=== PATIENT | male | born 1980 | race Caucasian/White ===

== ENCOUNTER 2017-07-12 10:21 | Inpatient (IN) | payer MEDICARE, MEDICAID ==
[~2017-07-12] VITALS: Ht 170.2 cm; Wt 85.7 kg
[~2017-07-12 10:21] MED LIST: AC325T; AGM875T PO; ASP81CT PO; ATN25T PO; ATN50T; CYAN5000 SL; FENO145T2 PO; FOLI-88 PO; FRSM20T PO; IBUP-30 PO; NAPR220T76 PO; OMEG-11 PO; SIMV40TA4 PO; VIT1TABL82 PO
--- OUTSIDE RECORDS SUMMARY | 2017-07-12 10:39 | XMS REPORT ---
Author Author KEVIN PETERSEN [facility] Address [address] [place] [address] Care Team Providers Care Day Care Home Mother Name Role Phone KEVIN PETERSEN Unavailable PROBLEMS Type Condition ICD9-CM Code [id number] Code Onset Dates Condition Status SNOMED Code Problem Irritable bowel syndrome with both constipation and diarrhea K58.2 Active 07310445 Problem Hyperlipidemia E78.5 Active 66466828 Problem Congenital heart disease Q24.9 Active [id number] ALLERGIES No Information SOCIAL HISTORY Never Assessed PLAN OF CARE VITAL SIGNS MEDICATIONS Medication Instructions Dosage Frequency Start Date End Date Duration Status Atenolol 25 MG Orally 3 times a day 1 tablet 8h 30 days Active RESULTS No Results PROCEDURES No Known procedures IMMUNIZATIONS No Known Immunizations MEDICAL (GENERAL) HISTORY Type Description Date Medical History Hyperlipidemia Medical History HTN Medical History congenital heart defect Medical History heatr murmur Medical History arthritis Medical History back trouble Medical History heart disease Surgical History Scope to look at heart 2013
--- OUTSIDE RECORDS SUMMARY | 2017-07-12 10:39 | XMS REPORT ---
Author Author KEVIN PETERSEN [facility] Address [address] [place] [address] Care Team Providers Care Repairing Calibrator Name Role Phone KEVIN PETERSEN Unavailable PROBLEMS Type Condition ICD9-CM Code [id number] Code Onset Dates Condition Status SNOMED Code Problem Irritable bowel syndrome with both constipation and diarrhea K58.2 Active 06761770 Problem Hyperlipidemia E78.5 Active 26045401 Problem Congenital heart disease Q24.9 Active 08318628 ALLERGIES Substance Reaction Event Type Date Status Codeine Sulfate elevated blood pressure Drug Allergy Oct, Active SOCIAL HISTORY Never Assessed PLAN OF CARE Activity Details Follow Up 1 Year Reason: VITAL SIGNS Height 67 in 2016-11-15 Weight 194.6 lbs 2016-11-15 Temperature 98.2 degrees Fahrenheit 2016-11-15 Heart Rate 76 bpm 2016-11-15 Respiratory Rate 24 2016-11-15 BMI 30.48 kg/m2 2016-11-15 Blood pressure systolic 122 mmHg 2016-11-15 Blood pressure diastolic 82 mmHg 2016-11-15 MEDICATIONS Medication Instructions Dosage Frequency Start Date End Date Duration Status Aspirin 81 mg 1 tablet by Oral route 1 time per day Apr, Active Atenolol 25 MG Orally 3 times a day 1 tablet 8h 90 days Active B Complex-Vitamin B12 1 Tablet by Oral route 1 time per day Jun, Active Fish Oil 1,000 mg 1 Capsule by Oral route 1 time per day Jun, Active Multivitamin 1 tablet by Oral route 1 time per day May, Active Ibuprofen 200 mg take 2 tablets (400 mg) by oral route every 4 hours as needed with food Jul, Active Feosol 325 mg (65 mg iron) 1 tablet daily Jul, 90 days Active RESULTS No Results PROCEDURES Procedure Date Ordered Result Body Site [facility] VISIT ESTABLISHED PATIENT November 15, 2016 IMMUNIZATIONS No Known Immunizations MEDICAL (GENERAL) HISTORY Type Description Date Medical History Hyperlipidemia Medical History HTN Medical History congenital heart defect Medical History heatr murmur Medical History arthritis Medical History back trouble Medical History heart disease Surgical History Scope to look at heart 2014
--- OUTSIDE RECORDS SUMMARY | 2017-07-12 10:40 | XMS REPORT | Continuity of Care Document ---
Author Author [facility] Organization [facility] Address Unknown Phone Unavailable Allergies Active Description Code Type Severity Reaction Onset Reported/Identified Relationship to Patient Clinical Status Yes codeine Drug Allergy 11/25/2008 Yes codeine Drug Allergy N/A N/A 11/25/2008 Yes codeine [id number] Drug Allergy Severe RAISES HEART RA 06/18/2014 Medications Problems Date Dx Coded Attending Type Code Diagnosis Diagnosed By 04/30/2008 272.1 HYPERLIPOPROTEINEMIA TYPE IV 04/30/2008 272.1 HYPERLIPOPROTEINEMIA TYPE IV 04/30/2008 272.1 HYPERLIPOPROTEINEMIA TYPE IV 04/30/2008 AMANDA CORONEL DDS 272.1 HYPERLIPOPROTEINEMIA TYPE IV 04/30/2008 AMANDA CORONEL DDS 272.1 HYPERLIPOPROTEINEMIA TYPE IV 04/30/2008 272.1 HYPERLIPOPROTEINEMIA TYPE IV 04/30/2008 SHORTY DE LA O DDS 272.1 HYPERLIPOPROTEINEMIA TYPE IV 04/30/2008 PRANAV BORJAS DO 272.1 HYPERLIPOPROTEINEMIA TYPE IV 04/30/2008 PRANAV BORJAS DO 272.1 HYPERLIPOPROTEINEMIA TYPE IV 04/30/2008 PRANAV BORJAS DO 272.1 HYPERLIPOPROTEINEMIA TYPE IV 04/30/2008 PRANAV BORJAS DO 272.1 HYPERLIPOPROTEINEMIA TYPE IV 04/30/2008 DAPHNEY MELISSA MD 272.1 HYPERLIPOPROTEINEMIA TYPE IV 04/30/2008 PRANAV BORJAS DO 272.1 HYPERLIPOPROTEINEMIA TYPE IV 04/30/2008 SHORTY DE LA O DDS 272.1 HYPERLIPOPROTEINEMIA TYPE IV 07/30/2008 270.7 HYPERGLYCEMIA 07/30/2008 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 07/30/2008 270.7 HYPERGLYCEMIA 07/30/2008 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 07/30/2008 270.7 HYPERGLYCEMIA 07/30/2008 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 07/30/2008 HOMER DDS, AMANDA F 270.7 HYPERGLYCEMIA 07/30/2008 HOMER DDS, AMANDA F 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 07/30/2008 HOMER DDS, AMANDA F 270.7 HYPERGLYCEMIA 07/30/2008 HOMER DDS, AMANDA F 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 07/30/2008 270.7 HYPERGLYCEMIA 07/30/2008 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 07/30/2008 JAIRON DDS, SHORTY M 270.7 HYPERGLYCEMIA 07/30/2008 JAIRON DDS, SHORTY M 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 07/30/2008 BORJAS DO, PRANAV K 270.7 HYPERGLYCEMIA 07/30/2008 BORJAS DO, PRANAV K 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 07/30/2008 BORJAS DO, PRANAV K 270.7 HYPERGLYCEMIA 07/30/2008 BORJAS DO, PRANAV K 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 07/30/2008 BORJAS DO, PRANAV K 270.7 HYPERGLYCEMIA 07/30/2008 BORJAS DO, PRANAV K 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 07/30/2008 BORJAS DO, PRANAV K 270.7 HYPERGLYCEMIA 07/30/2008 BORJAS DO, PRANAV K 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 07/30/2008 SHIN HANEY, ALI 270.7 HYPERGLYCEMIA 07/30/2008 SHIN HANEY, ALI 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 07/30/2008 BORJAS DO, PRANAV K 270.7 HYPERGLYCEMIA 07/30/2008 BORJAS DO, PRANAV K 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 07/30/2008 JAIRON DDS, SHORTY M 270.7 HYPERGLYCEMIA 07/30/2008 JAIRON DDS, SHORTY M 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 05/28/2010 784.0 headache 05/28/2010 784.0 headache 05/28/2010 784.0 headache 05/28/2010 HOMER DDS, AMANDA F 784.0 headache 05/28/2010 HOMER DDS, AMANDA F 784.0 headache 05/28/2010 784.0 headache 05/28/2010 JAIRON DDS, SHORTY M 784.0 headache 05/28/2010 BORJAS DO, PRANAV K 784.0 headache 05/28/2010 BORJAS DO, PRANAV K 784.0 headache 05/28/2010 BORJAS DO, PRANAV K 784.0 headache 05/28/2010 BORJAS DO, PRANAV K 784.0 headache 05/28/2010 SHIN HANEY, ALI 784.0 headache 05/28/2010 BORJAS DO, PRANAV K 784.0 headache 05/28/2010 JAIRON DDS, SHORTY Julien 784.0 headache 07/13/2010 759.89 SEUN'S SYNDROME 07/13/2010 759.89 SEUN'S SYNDROME 07/13/2010 759.89 SEUN'S SYNDROME 07/13/2010 HOMER DDS, AMANDA F 759.89 SEUN'S SYNDROME 07/13/2010 HOMER DDS, AMANDA F 759.89 SEUN'S SYNDROME 07/13/2010 759.89 SEUN'S SYNDROME 07/13/2010 JAIRON DDS, SHORTY Julien 759.89 SEUN'S SYNDROME 07/13/2010 BORJAS DO, PRANAV K 759.89 SEUN'S SYNDROME 07/13/2010 BORJAS DO PRANAV K 759.89 SEUN'S SYNDROME 07/13/2010 BORJAS DO, PRANAV K 759.89 SEUN'S SYNDROME 07/13/2010 BORJAS DO, PRANAV K 759.89 SEUN'S SYNDROME 07/13/2010 SHIN HANEY, ALI 759.89 SEUN'S SYNDROME 07/13/2010 BORJAS DO, PRANAV K 759.89 SEUN'S SYNDROME 07/13/2010 JAIRON DDS, SHORTY Julien 759.89 SEUN'S SYNDROME 04/22/2011 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 04/22/2011 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 04/22/2011 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 04/22/2011 HOMER DDS, AMANDA F 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 04/22/2011 HOMER DDS, AMANDA F 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 04/22/2011 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 04/22/2011 JAIRON DDS, SHORTY Julien 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 04/22/2011 BORJAS DO PRANAV K 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 04/22/2011 BORJAS DO, PRANAV K 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 04/22/2011 BORJAS DO, PRANAV K 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 04/22/2011 BORJAS DO, PRANAV K 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 04/22/2011 SHIN HANEY, DAPHNEY 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 04/22/2011 BORJAS DO, PRANAV K 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 04/22/2011 JAIRON DDS, SHORTY Julien 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 05/20/2011 414.01 CORONARY ARTERY STENOSIS MULTI-VESSEL 05/20/2011 414.01 CORONARY ARTERY STENOSIS MULTI-VESSEL 05/20/2011 414.01 CORONARY ARTERY STENOSIS MULTI-VESSEL 05/20/2011 HOMER CHARLAS, AMANDA F 414.01 CORONARY ARTERY STENOSIS MULTI-VESSEL 05/20/2011 HOMER DDS, AMANDA F 414.01 CORONARY ARTERY STENOSIS MULTI-VESSEL 05/20/2011 414.01 CORONARY ARTERY STENOSIS MULTI-VESSEL 05/20/2011 JAIRON DDS, SHORTY M 414.01 CORONARY ARTERY STENOSIS MULTI-VESSEL 05/20/2011 BORJAS DO, PRANAV K 414.01 CORONARY ARTERY STENOSIS MULTI-VESSEL 05/20/2011 BORJAS DO, PRANAV K 414.01 CORONARY ARTERY STENOSIS MULTI-VESSEL 05/20/2011 BORJAS DO, PRANAV K 414.01 CORONARY ARTERY STENOSIS MULTI-VESSEL 05/20/2011 BORJAS DO, PRANAV K 414.01 CORONARY ARTERY STENOSIS MULTI-VESSEL 05/20/2011 SHIN HANEY, DAPHNEY 414.01 CORONARY ARTERY STENOSIS MULTI-VESSEL 05/20/2011 BORJAS DO, PRANAV K 414.01 CORONARY ARTERY STENOSIS MULTI-VESSEL 05/20/2011 JAIRON DDS, SHORTY M 414.01 CORONARY ARTERY STENOSIS MULTI-VESSEL 08/11/2011 272.4 HYPERLIPIDEMIA 08/11/2011 V04.81 Vaccines Prophylactic Need Against Influenza 08/11/2011 272.4 HYPERLIPIDEMIA 08/11/2011 V04.81 Vaccines Prophylactic Need Against Influenza 08/11/2011 272.4 HYPERLIPIDEMIA 08/11/2011 V04.81 Vaccines Prophylactic Need Against Influenza 08/11/2011 HOMER DDS, AMANDA F 272.4 HYPERLIPIDEMIA 08/11/2011 HOMER DDS, AMANDA F V04.81 Vaccines Prophylactic Need Against Influenza 08/11/2011 HOMER DDS, AMANDA F 272.4 HYPERLIPIDEMIA 08/11/2011 HOMER DDS, AMANDA F V04.81 Vaccines Prophylactic Need Against Influenza 08/11/2011 272.4 HYPERLIPIDEMIA 08/11/2011 V04.81 Vaccines Prophylactic Need Against Influenza 08/11/2011 JAIRON DDS, SHORTY M 272.4 HYPERLIPIDEMIA 08/11/2011 JAIRON DDS, SHORTY M V04.81 Vaccines Prophylactic Need Against Influenza 08/11/2011 BORJAS DO, PRANAV K 272.4 HYPERLIPIDEMIA 08/11/2011 BORJAS DO, PRANAV K V04.81 Vaccines Prophylactic Need Against Influenza 08/11/2011 BORJAS DO, PRANAV K 272.4 HYPERLIPIDEMIA 08/11/2011 BORJAS DO, PRANAV K V04.81 Vaccines Prophylactic Need Against Influenza 08/11/2011 BORJAS DO, PRANAV K 272.4 HYPERLIPIDEMIA 08/11/2011 BORJAS DO, PRANAV K V04.81 Vaccines Prophylactic Need Against Influenza 08/11/2011 BORJAS DO, PRANAV K 272.4 HYPERLIPIDEMIA 08/11/2011 BORJAS DO, PRANAV K V04.81 Vaccines Prophylactic Need Against Influenza 08/11/2011 DAPHNEY MELISSA MD 272.4 HYPERLIPIDEMIA 08/11/2011 SHIN HANEY, ALI V04.81 Vaccines Prophylactic Need Against Influenza 08/11/2011 BORJAS DO, PRANAV K 272.4 HYPERLIPIDEMIA 08/11/2011 BORJAS DO, PRANAV K V04.81 Vaccines Prophylactic Need Against Influenza 08/11/2011 JAIRON DDS, SHORTY M 272.4 HYPERLIPIDEMIA 08/11/2011 JAIRON DDS, SHORTY M V04.81 Vaccines Prophylactic Need Against Influenza 12/23/2011 V06.1 TDAP DX 12/23/2011 V58.69 MEDICATION HIGH RISK 12/23/2011 V06.1 TDAP DX 12/23/2011 V58.69 MEDICATION HIGH RISK 12/23/2011 V06.1 TDAP DX 12/23/2011 V58.69 MEDICATION HIGH RISK 12/23/2011 HOMER DDS, AMANDA F V06.1 TDAP DX 12/23/2011 HOMER DDS, AMANDA F V58.69 MEDICATION HIGH RISK 12/23/2011 HOMER DDS, AMANDA F V06.1 TDAP DX 12/23/2011 HOMER DDS, AMANDA F V58.69 MEDICATION HIGH RISK 12/23/2011 V06.1 TDAP DX 12/23/2011 V58.69 MEDICATION HIGH RISK 12/23/2011 JAIRON DDS, SHORTY M V06.1 TDAP DX 12/23/2011 JAIRON DDS, SHORTY Julien V58.69 MEDICATION HIGH RISK 12/23/2011 BORJAS DO, PRANAV K V06.1 TDAP DX 12/23/2011 BORJAS DO, PRANAV K V58.69 MEDICATION HIGH RISK 12/23/2011 BORJAS DO, PRANAV K V06.1 TDAP DX 12/23/2011 BORJAS DO, PRANAV K V58.69 MEDICATION HIGH RISK 12/23/2011 BORJAS DO, PRANAV K V06.1 TDAP DX 12/23/2011 BORJAS DO, PRANAV K V58.69 MEDICATION HIGH RISK 12/23/2011 BORJAS DO, PRANAV K V06.1 TDAP DX 12/23/2011 BORJAS DO, PRANAV K V58.69 MEDICATION HIGH RISK 12/23/2011 SHIN HANEY, ALI V06.1 TDAP DX 12/23/2011 DAPHNEY MELISSA MD V58.69 MEDICATION HIGH RISK 12/23/2011 BORJAS DO, PRANAV K V06.1 TDAP DX 12/23/2011 BORJAS DO, PRANAV K V58.69 MEDICATION HIGH RISK 12/23/2011 JAIRON DDS, SHORTY Julien V06.1 TDAP DX 12/23/2011 JAIRON DDS, SHORTY Julien V58.69 MEDICATION HIGH RISK 07/10/2012 787.20 DYSPHAGIA UNSPECIFIED 07/10/2012 787.20 DYSPHAGIA UNSPECIFIED 07/10/2012 787.20 DYSPHAGIA UNSPECIFIED 07/10/2012 HOMER DDS, AMANDA F 787.20 DYSPHAGIA UNSPECIFIED 07/10/2012 HOMER DDS, AMANDA F 787.20 DYSPHAGIA UNSPECIFIED 07/10/2012 787.20 DYSPHAGIA UNSPECIFIED 07/10/2012 JAIRON DDS, SHORTY M 787.20 DYSPHAGIA UNSPECIFIED 07/10/2012 BORJAS DO PRANAV K 787.20 DYSPHAGIA UNSPECIFIED 07/10/2012 BORJAS DO, PRANAV K 787.20 DYSPHAGIA UNSPECIFIED 07/10/2012 BORJAS DO, PRANAV K 787.20 DYSPHAGIA UNSPECIFIED 07/10/2012 PRANAV BORJAS DO K 787.20 DYSPHAGIA UNSPECIFIED 07/10/2012 SHIN HANEY, DAPHNEY 787.20 DYSPHAGIA UNSPECIFIED 07/10/2012 PRANAV BORJAS DO K 787.20 DYSPHAGIA UNSPECIFIED 07/10/2012 JAIRON LEUNG, SHORTY Julien 787.20 DYSPHAGIA UNSPECIFIED 08/03/2012 112.0 THRUSH (ORAL) 08/03/2012 112.0 THRUSH (ORAL) 08/03/2012 HOMER DDS, AMANDA F 112.0 THRUSH (ORAL) 08/03/2012 HOMER DDS, AMANDA F 112.0 THRUSH (ORAL) 08/03/2012 112.0 THRUSH (ORAL) 08/03/2012 JAIRON LEUNG, SHORTY Julien 112.0 THRUSH (ORAL) 08/03/2012 SUAD NICHOLSON, PRANAV K 112.0 THRUSH (ORAL) 08/03/2012 SUAD NICHOLSON, PRANAV K 112.0 THRUSH (ORAL) 08/03/2012 SUAD NICHOLSON PRANAV K 112.0 THRUSH (ORAL) 08/03/2012 SUAD NICHOLSON PRANAV K 112.0 THRUSH (ORAL) 08/03/2012 DAPHNEY MELISSA MD 112.0 THRUSH (ORAL) 08/03/2012 SUAD NICHOLSON PRANAV K 112.0 THRUSH (ORAL) 08/03/2012 JAIRON LEUNG, SHORTY Julien 112.0 THRUSH (ORAL) 05/01/2014 HORTENCIA BORJAS DOA K 785.1 PALPITATIONS 05/01/2014 DAPHNEY MELISSA MD 785.1 PALPITATIONS 05/01/2014 PRANAV BORJAS DO K 785.1 PALPITATIONS 05/01/2014 JAIRON LEUNG, SHORTY Julien 785.1 PALPITATIONS 06/12/2014 SHIN HANEY, ALI 745.4 VENTRICULAR SEPTAL DEFECT 06/12/2014 PRANAV BORJAS DO K 745.4 VENTRICULAR SEPTAL DEFECT 06/12/2014 JAIRON LEUNG, SHORTY Julien 745.4 VENTRICULAR SEPTAL DEFECT 07/03/2014 DAPHNEY MELISSA MD 427.0 SVT (SUPRAVENTRICULAR TACHYCARDIA) 07/03/2014 PRANAV BORJAS DO K 427.0 SVT (SUPRAVENTRICULAR TACHYCARDIA) 07/03/2014 SHORTY DE LA O DDS 427.0 SVT (SUPRAVENTRICULAR TACHYCARDIA) 07/23/2014 PRANAV BORJAS DO 112.0 CANDIDIASIS OF MOUTH 07/23/2014 PRANAV BORJAS DO 462 ACUTE PHARYNGITIS 07/23/2014 SHORTY DE LA O DDS 112.0 CANDIDIASIS OF MOUTH 07/23/2014 SHORTY DE LA O DDS 462 ACUTE PHARYNGITIS 02/11/2015 Ot 746.89 02/11/2015 Ot 747.3 Procedures Code Description Performed By [place] [id number] ROUTINE VENIPUNCTURE 09/15/2012 04094 CMP 09/15/2012 75823 LIPID PANEL 09/15 [id number] GFR CALC (RESULT ONLY) 09/15/2012 11494 CPK 09/16/2012 57903 ROUTINE VENIPUNCTURE 12/20/2012 81416 LIVER PANEL (LFT) 12/20/2012 36607 LIPID PANEL 12/20 71628 ROUTINE VENIPUNCTURE 08/01/2013 5811545 GFR CALC (RESULT ONLY) 08/01/2013 78492 CMP 08/01/2013 95869 LIPID PANEL 08/01 42287 ROUTINE VENIPUNCTURE 02/27/2014 5833863 GFR CALC (RESULT ONLY) 02/27/2014 54390 CMP 02/27/2014 71355 LIPID PANEL 02/27 11777 CBC 02/27/2014 58726 TSH 02/27/2014 44808 ECHO 2D 2013 12258 OXIMETRY 2013 88402 HOLTER MONITOR (OUTPATIENT) 07/03/2014 88953 OXIMETRY 2013 93140 ROUTINE VENIPUNCTURE 07/23/2014 1421099 GFR CALC (RESULT ONLY) 07/23/2014 59788 CMP 07/23/2014 92889 LIPID PANEL 07/23 92740 OXIMETRY 2014 Results Encounters ACCT No. Visit Date/Time Discharge Status Pt. Type Provider Facility Loc./Unit Complaint [id number] 06/18/2014 10:08:00 2013 17:30:00 DIS Outpatient [id number] 05/10/2014 13:04:00 2013 23:59:59 CLS Outpatient [id number] 04/23/2011 09:18:00 Document Registration [id number] 09/25/2014 08:25:00 09/25/2014 23: 59:59 CLS Outpatient JAIRON CHARLASHORTY Calles [id number] 07/23/2014 10:12:00 07/23/2014 23: 59:59 CLS Outpatient PRANAV BORJAS DO [id number] 07/03/2014 10:33:00 07/03/2014 23: 59:59 CLS Outpatient DAPHNEY MELISSA MD [id number] 05/01/2014 08:44:00 05/01/2014 23: 59:59 CLS Outpatient PRANAV BORJAS DO Jim [id number] 02/27/2014 09:51:00 02/27/2014 23: 59:59 CLS Outpatient SUAD NICHOLSON PRANAV Fernandez [id number] 08/01/2013 09:26:00 08/01/2013 23: 59:59 CLS Outpatient PRANAV BORJAS DO Jim [id number] 08/01/2013 09:26:00 08/01/2013 23: 59:59 CLS Outpatient HORTENCIA BORJAS DOLucas Fernandez [id number] 06/28/2013 08:54:00 06/28/2013 23: 59:59 CLS Outpatient JAIRON DUNHAMSHORTY Calles [id number] 10/17/2012 11:41:00 10/17/2012 23: 59:59 CLS Outpatient HOMER MADHU AMANDA F [id number] 09/18/2012 07:51:00 09/18/2012 23: 59:59 CLS Outpatient HOMER DDAMANDA Calles [id number] 08/11/2012 09:29:00 08/11/2012 23: 59:59 CLS Outpatient [id number] 08/03/2012 08:55:00 08/03/2012 23: 59:59 CLS Outpatient [id number] 07/10/2012 16:02:00 07/10/2012 23: 59:59 CLS Outpatient [id number] 12/20/2012 11:37:00 Document Registration
--- NOTE | 2017-07-12 11:26 | ED Abdominal Pain ---
General Chief Complaint: -Male Stated Complaint: ABD PAIN,POSSIBLE UTI Nursing Triage Note: AMB TO ROOM C/O ABD PAIN SINCE SUN. WAS SEEN IN [place] ER DX WITH UTI AND ILEUS. WAS BUT ON BACTRIM AND TOLD TO STAY ON CLEAR LIQUID STATES HE IS NOT ANY BETTR. Sepsis Screen: No Definite Risk Source of Information: Patient Exam Limitations: No Limitations History of Present Illness Time Seen By Provider: 11:24 Initial Comments Admit to ER with periumbilical abdominal for a few weeks that became worse on Tuesday (today is Tuesday) prompting a visit to the [facility] emergency room. He was seen at [facility] emergency room and diagnosed with urinary tract infection and ileus via x-ray and lab work. He was given Bactrim. He had some vomiting last night. Denies any improvement. Maximum temperature 101. 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 Primary care is Dr. Damon Timing/Duration: 2-3 Days Severity/Quality: Moderate Location: Periumbilical Radiation: No Radiation Activities at Onset: None Associated Symptoms: Denies Symptoms Allergies and Home Medications Allergies Coded Allergies: codeine (Verified Allergy, Severe, RAISES HEART RATE, 06/18/14) Home Medications Aspirin 81 Mg Chew, 81 MG PO DAILY, (Reported) Atenolol 25 Mg Tablet, 75 MG PO DAILY, (Reported) TAKES 3 (25MG) TABLETS Review of Systems Constitutional: see HPI EENTM: No Symptoms Reported Respiratory: No Symptoms Reported Cardiovascular: No Symptoms Reported Gastrointestinal: See HPI, Abdominal Pain, Denies Constipated, Denies Diarrhea , Nausea Genitourinary: No Symptoms Reported Musculoskeletal: no symptoms reported Skin: no symptoms reported Psychiatric/Neurological: No Symptoms Reported Endocrine: No Symptoms Reported Past Byfybdu-Slisoe-Rzggoe Hx Patient Social History Alcohol Use: Denies Use Recreational Drug Use: No Smoking Status: Never a Smoker Recent Foreign Travel: No Contact w/Someone Who Travel: No Recent Infectious Disease Expo: No Recent Hopitalizations: Yes Immunizations Up To Date Date of Pneumonia Vaccine: Jul 03, 2007 Date of Influenza Vaccine: May 29, 2012 Surgeries History of Surgeries: No Respiratory History of Respiratory Disorde: No Cardiovascular History of Cardiac Disorders: Yes (CONGENITAL CARDIOMYOPATHY) Reproductive System Hx Reproductive Disorders: No Gastrointestinal History of Gastrointestinal Di: No Musculoskeletal History of Musculoskeletal Dis: Yes (C/O BACK PAIN ON LEFT SIDE) Endocrine History of Endocrine Disorders: No Psychosocial History of Psychiatric Problem: Yes (SEES PSYCH.AT [facility]) Blood Transfusions History of Blood Disorders: No Physical Exam Vital Signs VS - Last 72 Hours, by Label 07/12/17 10:52 Temp 98.7 Pulse 76 Resp 18 B/P (MAP) 113/64 Pulse Ox 96 O2 Delivery Room Air Capillary Refill : Less Than 3 Seconds General Appearance: WD/WN, no apparent distress HEENT: PERRL/EOMI, normal ENT inspection Neck: non-tender, full range of motion Respiratory: normal breath sounds, no respiratory distress, no accessory muscle use Cardiovascular: regular rate, rhythm, no murmur Gastrointestinal: normal bowel sounds, soft, tenderness (primary medical tenderness to palpation. Bowel sounds are active. He does report passing gas) Extremities: normal range of motion, non-tender Neurologic/Psychiatric: alert, normal mood/affect, oriented x 3 Skin: normal color, warm/dry Progress/Results/Core Measures Results/Orders Lab Results Laboratory Tests Test 07/12/17 11:10 Range/Units White Blood Count 12.0 H 4.3-11.0 10^3/uL Red Blood Count 4.68 4.35-5.85 10^6/uL Hemoglobin 13.4 13.3-17.7 G/DL Hematocrit 38 L 40-54 % Mean Corpuscular Volume 82 80-99 FL Mean Corpuscular Hemoglobin 29 25-34 PG Mean Corpuscular Hemoglobin Concent 35 32-36 G/DL Red Cell Distribution Width 12.4 10.0-14.5 % Platelet Count 272 130-400 10^3/uL Mean Platelet Volume 10.4 7.4-10.4 FL Neutrophils (%) (Auto) 82 H 42-75 % Lymphocytes (%) (Auto) 5 L 12-44 % Monocytes (%) (Auto) 12 0-12 % Eosinophils (%) (Auto) 0 0-10 % Basophils (%) (Auto) 0 0-10 % Neutrophils # (Auto) 9.8 H 1.8-7.8 X 10^3 Lymphocytes # (Auto) 0.6 L 1.0-4.0 X 10^3 Monocytes # (Auto) 1.5 H 0.0-1.0 X 10^3 Eosinophils # (Auto) 0.1 0.0-0.3 10^3/uL Basophils # (Auto) 0.0 0.0-0.1 10^3/uL Neutrophils % (Manual) 73 % Lymphocytes % (Manual) 10 % Monocytes % (Manual) 10 % Eosinophils % (Manual) 0 % Basophils % (Manual) 0 % Band Neutrophils 7 % Rouleau SLIGHT Urine Color CANDELARIA H Urine Clarity CLEAR Urine pH 6 5-9 Urine Specific [place] 1.020 1.016-1.022 Urine Protein 2+ H NEGATIVE Urine Glucose (UA) NEGATIVE NEGATIVE Urine Ketones 1+ H NEGATIVE Urine Nitrite NEGATIVE NEGATIVE Urine Bilirubin 2+ H NEGATIVE Urine Urobilinogen 12 H NORMAL MG/DL Urine Leukocyte Esterase 1+ H NEGATIVE Urine RBC (Auto) 1+ H NEGATIVE Urine RBC RARE /HPF Urine WBC 5-10 H /HPF Urine Squamous Epithelial Cells 0-2 /HPF Urine Renal Epithelial Cells NONE /HPF Urine Crystals NONE /LPF Urine Bacteria TRACE /HPF Urine Casts NONE /LPF Urine Mucus LARGE H /LPF Urine Culture Indicated YES Sodium Level 137 135-145 MMOL/L Potassium Level 3.3 L 3.6-5.0 MMOL/L Chloride Level 104 98-107 MMOL/L Carbon Dioxide Level 26 21-32 MMOL/L Anion Gap 7 5-14 MMOL/L Blood Urea Nitrogen 8 7-18 MG/DL Creatinine 0.70 0.60-1.30 MG/DL Estimat Glomerular Filtration Rate > 60 BUN/Creatinine Ratio 11 Glucose Level 105 70-105 MG/DL Calcium Level 8.8 8.5-10.1 MG/DL Total Bilirubin 0.8 0.1-1.0 MG/DL Aspartate Amino Transf (AST/SGOT) 15 5-34 U/L Alanine Aminotransferase (ALT/SGPT) 25 0-55 U/L Alkaline Phosphatase 125 40-136 U/L Total Protein 6.6 6.4-8.2 GM/DL Albumin 3.5 3.2-4.5 GM/DL My Orders Orders - SERGE OLIVA APRN Ua Culture If Indicated (07/12/17 10:57) Saline Lock/Iv-Start (07/12/17 10:57) Cbc With Automated Diff (07/12/17 10:57) Comprehensive Metabolic Panel (07/12/17 10:57) Ns Iv 1000 Ml (Sodium Chloride 0.9%) (07/12/17 11:30) Ct Abdomen/Pelvis W (07/12/17 11:18) Iohexol Injection (Omnipaque 350 Mg/Ml 1 (07/12/17 11:30) Ns (Ivpb) (Sodium Chloride 0.9% Ivpb Bag (07/12/17 11:30) Manual Differential (07/12/17 11:10) Piperacillin Sodium/Tazobactam (Zosyn Vi (07/12/17 12:15) Fentanyl Injection (Sublimaze Injection (07/12/17 12:15) Urine Culture (07/12/17 11:10) Medications Given in ED Current Medications Medications Dose Ordered Sig/Wero Route Start Time Stop Time Status Last Admin Dose Admin Fentanyl Citrate 50 mcg ONCE ONCE IVP 07/12/17 12:15 07/12/17 12:16 DC 07/12/17 12:33 50 MCG Iohexol 100 ml ONCE ONCE IV 07/12/17 11:30 07/12/17 11:31 DC 07/12/17 11:50 100 ML Sodium Chloride 100 ml ONCE ONCE IV 07/12/17 11:30 07/12/17 11:31 DC 07/12/17 11:50 80 ML Vital Signs/I&O Vital Sign - Last 12Hours 07/12/17 10:52 Temp 98.7 Pulse 76 Resp 18 B/P (MAP) 113/64 Pulse Ox 96 O2 Delivery Room Air Blood Pressure Mean: 80 Diagnostic Imaging Diagonstic Imaging: CT Comments NAME: JUNITO GREENBERG [facility] REC#: [id number] PT STATUS: REG ER : 1980 PHYSICIAN: SERGE OLIVA APRN ADMIT DATE: 07/12/17/ER Draft Date of Exam:07/12/17 CT ABDOMEN/PELVIS W PROCEDURE: CT abdomen and pelvis with contrast. TECHNIQUE: Multiple contiguous axial images were obtained through the abdomen and pelvis after administration of intravenous contrast. INDICATION: Abdominal pain. 100 mL of Omnipaque 350 is administered intravenously. FINDINGS: There is a fluid collection measuring 6 x 7 x 6.4 cm in the retrocecal area with suggestion of an inflamed appendix posterior to it suggestive of a an appendiceal abscess. There is no bowel obstruction. No significant free fluid or free air is seen. The lung bases appear clear. The liver, the gallbladder, the pancreas, and adrenal glands appear unremarkable. The prostate is moderately enlarged measuring 16.2 x 14 x 5.5 cm in size. The abdominal aorta is relatively small in caliber measuring 1.1 cm with normal patent lumen and normal appearance of its major branches. No para-aortic significantly enlarged lymph nodes are seen. The osseous structures demonstrate mild left convexity scoliosis and mild degenerative changes in the SI joints. The prostate is enlarged measuring 6.1 cm in size. IMPRESSION: 1. A 7 cm fluid collection in retrocecal location suggestive of an appendiceal abscess. 2. Moderate splenomegaly. The findings are discussed with Dr. Riley at time of dictation. Dictated on workstation # [id number] Dict: 07/12/17 1203 Trans: 07/12/17 1231 TS [id number] Interpreted by: JEFFREY ELIZABETH MD Electronically signed by: Departure Communication (Admissions) Time/Spoke to Admitting Phy: 12:[address] Riley is here seeing the patient. We will admit to him, consult Dr. Elizabeth from interventional radiology to drain the abscess, IV antibiotics and an appendectomy at a later date. Time/Spoke to Consulting Phy: 12:43 Communication/Consulting Dr. Glasgow agrees to consult Progress Notes 1243-Patient to go down for interventional radiology for drainage of the abscess in 30 minutes. Impression Impression: Primary Impression: Acute appendicitis with appendiceal abscess Disposition: 09 ADMITTED INPATIENT Condition: Stable Admissions Decision to Admit Reason: Admit from ER (General) Decision to Admit/Date: Jul 12, 2017 Time/Decision to Admit Time: 12:34 Departure-Patient Inst. Referrals: [facility] (PCP/Family) Primary Care Physician SERGE OLIVA APRN Jul 12, 2017 11:26
[2017-07-12] MEDS ORDERED: IOHEXOL 350 MG/ML 100 ML (OMNIPAQUE 350) VIAL IV ONE (11:30)
[2017-07-12] MEDS ORDERED: NS 100 ML (IVPB) BAG IV ONE (11:30)
[2017-07-12] MEDS ORDERED: NS IV 1000 ML 1,000 ML IV SCH (11:30)
[2017-07-12 11:44] LABS: BASOPHILS % (AUTO) 0 % (0-10); BILIRUBIN,URINE 2+ (NEGATIVE); EOSINOPHILS # (AUTO) 0.1 10^3/uL (0.0-0.3); EOSINOPHILS % (AUTO) 0 % (0-10); KETONES,URINE 1+ (NEGATIVE); LEUKOCYTE ESTERASE ,URINE 1+ (NEGATIVE); LYMPHOCYTES # (AUTO) 0.6 X 10^3 (1.0-4.0); LYMPHOCYTES % (AUTO) 5 % (12-44); MEAN CORPUSCULAR HEMOGLOBIN 29 PG (25-34); MEAN CORPUSCULAR HGB CONC 35 G/DL (32-36); MEAN CORPUSCULAR VOLUME 82 FL (80-99); MEAN PLATELET VOLUME 10.4 FL (7.4-10.4); MONOCYTES # (AUTO) 1.5 X 10^3 (0.0-1.0); MONOCYTES % (AUTO) 12 % (0-12); NEUTROPHILS # (AUTO) 9.8 X 10^3 (1.8-7.8); NEUTROPHILS % (AUTO) 82 % (42-75); NITRITE,URINE NEGATIVE (NEGATIVE); PH,URINE 6 (5-9); PLATELET COUNT 272 10^3/uL (130-400); PROTEIN,URINE 2+ (NEGATIVE); RED BLOOD COUNT 4.68 10^6/uL (4.35-5.85); RED CELL DISTRIBUTION WIDTH 12.4 % (10.0-14.5); UROBILINOGEN,URINE 12 MG/DL (NORMAL)
[2017-07-12 12:03] LABS: ALANINE AMINOTRANSFERASE 25 U/L (0-55); ALBUMIN 3.5 GM/DL (3.2-4.5); ANION GAP 7 MMOL/L (5-14); ASPARTATE AMINO TRANSFERASE 15 U/L (5-34); BILIRUBIN,TOTAL 0.8 MG/DL (0.1-1.0); BLOOD UREA NITROGEN 8 MG/DL (7-18); BUN/CREATININE RATIO 11; CALCIUM 8.8 MG/DL (8.5-10.1); CARBON DIOXIDE 26 MMOL/L (21-32); CHLORIDE 104 MMOL/L (98-107); GFR ESTIMATED > 60; GLUCOSE 105 MG/DL (70-105); POTASSIUM 3.3 MMOL/L (3.6-5.0); SODIUM 137 MMOL/L (135-145); TOTAL PROTEIN 6.6 GM/DL (6.4-8.2)
[2017-07-12 12:07] LABS: BAND NEUTROPHILS 7 %; NEUTROPHILS % (MANUAL) 73 %
[2017-07-12 12:08] LABS: BASOPHILS % (MANUAL) 0 %; EOSINOPHILS % (MANUAL) 0 %; LYMPHOCYTES % (MANUAL) 10 %; ROULEAUX SLIGHT
[2017-07-12] MEDS ORDERED: fentaNYL INJECTION 100 MCG/2 ML AMP IVP ONE ×2 (12:15→13:30)
[2017-07-12 12:16] LABS: SQUAMOUS EPITHELIAL CELL,UR 0-2 /HPF
--- NOTE | 2017-07-12 12:31 | Diagnostic Imaging Report ---
PROCEDURE: CT abdomen and pelvis with contrast. TECHNIQUE: Multiple contiguous axial images were obtained through the abdomen and pelvis after administration of intravenous contrast. INDICATION: Abdominal pain. 100 mL of Omnipaque 350 is administered intravenously. FINDINGS: There is a fluid collection measuring 6 x 7 x 6.4 cm in the retrocecal area with suggestion of an inflamed appendix posterior to it suggestive of a an appendiceal abscess. There is no bowel obstruction. No significant free fluid or free air is seen. The lung bases appear clear. The liver, the gallbladder, the pancreas, and adrenal glands appear unremarkable. The prostate is moderately enlarged measuring 16.2 x 14 x 5.5 cm in size. The abdominal aorta is relatively small in caliber measuring 1.1 cm with normal patent lumen and normal appearance of its major branches. No para-aortic significantly enlarged lymph nodes are seen. The osseous structures demonstrate mild left convexity scoliosis and mild degenerative changes in the SI joints. The prostate is enlarged measuring 6.1 cm in size. IMPRESSION: 1. A 7 cm fluid collection in retrocecal location suggestive of an appendiceal abscess. 2. Moderate splenomegaly. The findings are discussed with Dr. Riley at time of dictation. Dictated by: Dictated on workstation # [id number]
[2017-07-12] MEDS: PIPERACILLIN SODIUM/TAZOBACTAM 4.5 GM in NS (IVPB) 100 ML IV ONE ×2 (12:34→14:16)
[2017-07-12] MEDS ORDERED: LIDOCAINE 1% INJ 20 ML (XYLOCAINE) VIAL INJ ONE (13:30)
[2017-07-12] MEDS: fentaNYL INJECTION 100 MCG/2 ML AMP IVP PRN ×2 (13:54→14:08)
--- NOTE | 2017-07-12 14:20 | Pre-Procedure Progress Note ---
Pre-Procedure Progress Note H&P Reviewed The H&P was reviewed, patient examined and no changes noted. Date H&P Reviewed: Jul 12, 2017 Time H&P Reviewed: 13:00 Appendiceal abscess JEFFREY MEDINA MD Jul 12, 2017 14:19
[2017-07-12] MEDS ORDERED: NS W/KCL 40 MEQ/L 1,000 ML IV ONE (14:46)
[2017-07-12] MEDS ORDERED: SULF-222 PO (14:55)
[2017-07-12] MEDS ORDERED: ATEN25TA PO (14:56)
[2017-07-12] MEDS ORDERED: IBUP-30 PO (14:56)
[2017-07-12] MEDS ORDERED: MULT-35 PO (14:57)
[2017-07-12] MEDS ORDERED: CATHETER FLUSH 10 ML SYR IV PRN (15:00)
[2017-07-12] MEDS: NS W/KCL 40 MEQ/L 1,000 ML IV SCH (15:01)
[2017-07-12] MEDS: fentaNYL INJECTION 100 MCG/2 ML AMP IV PRN ×3 (15:26→22:12)
[2017-07-12] MEDS ORDERED: INFLUENZA TRIvalent 2017-2018 0.5 ML/45 MCG SYR IM ONE (15:30)
[2017-07-12 16:12] VITALS: BP 118/56
--- NOTE | 2017-07-12 16:21 | History & Physical-Surgical ---
History of Present Illness History of Present Illness Reason for visit/HPI Chief complaint periumbilical abdominal pain. Patient is a 36-year-old male who has been feeling well for approximately 3 weeks. Patient states that he's been having a little bit of periumbilical pain which has slowly increased in intensity. There is approximately about 3 days where he started to feel better but then was followed by worsening symptoms again. Patient was seen at outlying facility couple days ago which he was diagnosed with an ileus and UTI which is placed on Bactrim at that time. Patient states the pain continued to worsen and was instructed to come here for further evaluation today. Patient pain is periumbilical right lower quadrant area. He was having some nausea and emesis last night. The pain is dull sharp without any radiation. He has had fever up to 101. Patient with CT scan with a 7 cm retrocecal abscess suggestive of perforated appendicitis. Patient with no other complaints this time. He denies any sweats chills shortness of breath or chest pain. Date of Admission Jul 12, 2017 at 12:57 Date Seen by Provider: Jul 12, 2017 Time Seen by Provider: 12:57 I consulted on this patient on 07/12/17 12:57 Attending Physician Katty Riley DO Admitting Physician kathy,[facility] Allergies and Home Medications Allergies Coded Allergies: codeine (Verified Allergy, Severe, RAISES HEART RATE, 06/18/14) Home Medications Atenolol 25 Mg Tablet, 75 MG PO DAILY, (Reported) TAKES 3 (25MG) TABLETS Ibuprofen 200 Mg Tablet, 400 MG PO Q6H PRN for PAIN-MILD, (Reported) TAKES 2 (200MG) TABLETS Multivitamin 1 Each Tablet, 1 TAB PO DAILY, (Reported) Sulfamethoxazole/Trimethoprim 1 Each Tablet, 1 TAB PO BID for 14 Days, (Reported ) 14 DAY THERAPY FILLED 07-10-17 Past Cwpqeex-Ydvnki-Eyfock Hx Patient Social History Alcohol Use: Denies Use Recreational Drug Use: No Smoking Status: Never a Smoker Recent Foreign Travel: No Contact w/Someone Who Travel: No Recent Infectious Disease Expo: No Recent Hopitalizations: No Physical Abuse Screen: No Sexual Abuse: No Immunizations Up To Date PED Vaccines UTD: Yes Date of Pneumonia Vaccine: Jul 03, 2007 Date of Influenza Vaccine: May 29, 2012 Seasonal Allergies Seasonal Allergies: No Surgeries History of Surgeries: No Respiratory History of Respiratory Disorde: No Cardiovascular History of Cardiac Disorders: Yes (CONGENITAL CARDIOMYOPATHY) Neurological History of Neurological Disord: No Reproductive System Hx Reproductive Disorders: No Genitourinary History of Genitourinary Disor: No Gastrointestinal History of Gastrointestinal Di: No Musculoskeletal History of Musculoskeletal Dis: Yes (C/O BACK PAIN ON LEFT SIDE) Endocrine History of Endocrine Disorders: No HEENT History of HEENT Disorders: No Cancer History of Cancer: No Psychosocial History of Psychiatric Problem: Yes (SEES PSYCH.AT [facility]) Integumentary History of Skin or Integumenta: No Blood Transfusions History of Blood Disorders: No Family Medical History Significant Family History: No Pertinent Family Hx Family Medial History: Myocardial infarction 19 FATHER Constitutional: see HPI EENTM: no symptoms reported Respiratory: no symptoms reported Cardiovascular: no symptoms reported Gastrointestinal: see HPI Genitourinary: no symptoms reported Musculoskeletal: no symptoms reported Skin: no symptoms reported Psychiatric/Neurological: No Symptoms Reported Physical Exam Vital Signs Vital Sign - Last 12Hours 07/12/17 10:52 Temp 98.7 Pulse 76 Resp 18 B/P (MAP) 113/64 Pulse Ox 96 O2 Delivery Room Air Capillary Refill : Less Than 3 Seconds General Appearance: No Apparent Distress HEENT: PERRL/EOMI Neck: Non Tender, Supple Respiratory: No Accessory Muscle Use, No Respiratory Distress Cardiovascular: Regular Rate, Rhythm Gastrointestinal: Soft, Tenderness (right lower quadrant, no significant guarding or rebounding) Rectal: Deferred Back: No CVA Tenderness Extremity: Non Tender Neurologic/Psychiatric: Alert, Oriented x3, No Motor/Sensory Deficits, Normal Mood/Affect Skin: Warm/Dry Lymphatic: No Adenopathy Data Review Labs Laboratory Tests 07/12/17 11:10: White Blood Count 12.0H, Red Blood Count 4.68, Hemoglobin 13.4, Hematocrit 38L, Mean Corpuscular Volume 82, Mean Corpuscular Hemoglobin 29, Mean Corpuscular Hemoglobin Concent 35, Red Cell Distribution Width 12.4, Platelet Count 272, Mean Platelet Volume 10.4, Neutrophils (%) (Auto) 82H, Lymphocytes (%) (Auto) 5L , Monocytes (%) (Auto) 12, Eosinophils (%) (Auto) 0, Basophils (%) (Auto) 0, Neutrophils # (Auto) 9.8H, Lymphocytes # (Auto) 0.6L, Monocytes # (Auto) 1.5H, Eosinophils # (Auto) 0.1, Basophils # (Auto) 0.0, Neutrophils % (Manual) 73, Lymphocytes % (Manual) 10, Monocytes % (Manual) 10, Eosinophils % (Manual) 0, Basophils % (Manual) 0, Band Neutrophils 7, Rouleau SLIGHT, Urine Color AMBERH, Urine Clarity CLEAR, Urine pH 6, Urine Specific [place] 1.020, Urine Protein 2+H , Urine Glucose (UA) NEGATIVE, Urine Ketones 1+H, Urine Nitrite NEGATIVE, Urine Bilirubin 2+H, Urine Urobilinogen 12H, Urine Leukocyte Esterase 1+H, Urine RBC ( Auto) 1+H, Urine RBC RARE, Urine WBC 5-10H, Urine Squamous Epithelial Cells 0-2 , Urine Renal Epithelial Cells NONE, Urine Crystals NONE, Urine Bacteria TRACE, Urine Casts NONE, Urine Mucus LARGEH, Urine Culture Indicated YES, Sodium Level 137, Potassium Level 3.3L, Chloride Level 104, Carbon Dioxide Level 26, Anion Gap 7, Blood Urea Nitrogen 8, Creatinine 0.70, Estimat Glomerular Filtration Rate > 60, BUN/Creatinine Ratio 11, Glucose Level 105, Calcium Level 8.8, Total Bilirubin 0.8, Aspartate Amino Transf (AST/SGOT) 15, Alanine Aminotransferase ( ALT/SGPT) 25, Alkaline Phosphatase 125, Total Protein 6.6, Albumin 3.5 Assessment/Plan Assessment/Plan Assessment/Plan Patient is a 36-year-old male with perforated appendicitis with abscess which is 7 cm in largest diameter. Velasquez syndrome, UTI. Patient with large abscess which I discussed with Dr. Elizabeth. We'll plan on interventional radiology placement of drain. Patient on Zosyn and we'll await cultures Consult Dr. Glasgow for medical management NPO for now IV hydration repeat labs in am Clinical Quality Measures DVT/VTE Risk/Contraindication: Risk Factor Score Per Nursin RFS Level Per Nursing on Admit: 1=Low/No VTE PPX AKTTY RILEY DO Jul 12, 2017 16:21
[2017-07-12] MEDS: LACTOBACILLUS Acidoph/Bulgar (LACTINEX/FLORANEX) TAB PO SCH (16:48)
[2017-07-12] MEDS: metroNIDAZOLE 500MG/100ML IVPB 100 ML IV SCH ×2 (16:48→23:50)
--- NOTE | 2017-07-12 17:12 | Diagnostic Imaging Report ---
EXAMINATION: CT-guided drain placement. Right lower quadrant abdominal abscess. INDICATION: Periappendiceal abscess. The patient's vital signs, cardiac rhythm, and pulse oximetry with observed throughout the procedure by qualified nursing personnel. Sedation/medications: Fentanyl 25 mcg IV. CONSENT: Informed consent was obtained from the patient. The risks, benefits, potential complications and alternatives were reviewed and all questions answered to the patient's satisfaction. FINDINGS: Retrocecal with periappendiceal abscess is seen PROCEDURE: After maximal sterile barrier preparation and draping, 1% lidocaine was utilized for local anesthesia. With the patient in supine position, right lateral approach was selected. A 19-gauge Yueh sheathed needle was introduced utilizing CT guidance into the right retrocecal abscess. CT images confirm appropriate positioning. After standard over a guidewire exchange technique and after serial dilatation, a 14 Montenegrin drain is placed and distal loop formed in the collection. A 60 ml of purulent yellowish greenish fluid is aspirated and sent to microbiology. The drainage catheter is connected to suction draining bag. The patient tolerated the procedure well with no immediate complications. IMPRESSION: Successful CT-guided, 14 Montenegrin, drain placement in periappendiceal abscess. Dictated by: Dictated on workstation # [id number]
[2017-07-12] MEDS: ONDANSETRON 4 MG/2 ML (SDV) Z0FRAN IV PRN (18:09)
[2017-07-12] MEDS: ACETAMINOPHEN 325 MG TABLET/CAPLET (TYLENOL) PO PRN (19:33)
[2017-07-12 20:00] VITALS: BP 122/74
[2017-07-12] MEDS: PIPERACILLIN/TAZOBACTAM 4.5 GM/NS 100 ML IVPB IV SCH ×2 (20:05)
[2017-07-12] MEDS: CATHETER FLUSH 10 ML SYR IV SCH (20:06)
[2017-07-12] MEDS: IBUPROFEN 800 MG (MOTRIN) TAB PO PRN (23:50)
[2017-07-13] VITALS: BP 126/69
[2017-07-13] MEDS: fentaNYL INJECTION 100 MCG/2 ML AMP IV PRN ×6 (00:32→22:55)
[2017-07-13] MEDS: NS W/KCL 40 MEQ/L 1,000 ML IV SCH ×2 (00:33→11:04)
[2017-07-13] MEDS: PIPERACILLIN/TAZOBACTAM 4.5 GM/NS 100 ML IVPB IV SCH ×6 (03:33→20:19)
[2017-07-13 04:00] VITALS: BP 114/69
[2017-07-13 06:27] LABS: BASOPHILS % (AUTO) 0 % (0-10); EOSINOPHILS % (AUTO) 0 % (0-10); LYMPHOCYTES # (AUTO) 0.7 X 10^3 (1.0-4.0); LYMPHOCYTES % (AUTO) 5 % (12-44); MEAN CORPUSCULAR HEMOGLOBIN 29 PG (25-34); MEAN CORPUSCULAR HGB CONC 35 G/DL (32-36); MEAN CORPUSCULAR VOLUME 82 FL (80-99); MEAN PLATELET VOLUME 10.3 FL (7.4-10.4); MONOCYTES # (AUTO) 1.5 X 10^3 (0.0-1.0); MONOCYTES % (AUTO) 11 % (0-12); NEUTROPHILS # (AUTO) 12.1 X 10^3 (1.8-7.8); NEUTROPHILS % (AUTO) 84 % (42-75); PLATELET COUNT 247 10^3/uL (130-400); RED BLOOD COUNT 4.67 10^6/uL (4.35-5.85); RED CELL DISTRIBUTION WIDTH 12.7 % (10.0-14.5); WHITE BLOOD COUNT 14.4 10^3/uL (4.3-11.0)
[2017-07-13] MEDS: LACTOBACILLUS Acidoph/Bulgar (LACTINEX/FLORANEX) TAB PO SCH ×3 (06:34→17:03)
[2017-07-13 06:58] LABS: ANION GAP 10 MMOL/L (5-14); BLOOD UREA NITROGEN 8 MG/DL (7-18); BUN/CREATININE RATIO 13; CALCIUM 8.3 MG/DL (8.5-10.1); CARBON DIOXIDE 19 MMOL/L (21-32); CHLORIDE 109 MMOL/L (98-107); CREATININE SERUM 0.64 MG/DL (0.60-1.30); GFR ESTIMATED > 60; GLUCOSE 96 MG/DL (70-105); POTASSIUM 3.9 MMOL/L (3.6-5.0); SODIUM 138 MMOL/L (135-145)
[2017-07-13 08:00] VITALS: BP 122/56
[2017-07-13] MEDS: CATHETER FLUSH 10 ML SYR IV SCH ×2 (09:08→20:20)
[2017-07-13] MEDS: metroNIDAZOLE 500MG/100ML IVPB 100 ML IV SCH ×2 (09:15→17:03)
[2017-07-13] MEDS: NS IV 1000 ML 1,000 ML IV SCH ×2 (11:45→19:23)
[2017-07-13 12:00] VITALS: BP 136/66
[2017-07-13] MEDS: IBUPROFEN 800 MG (MOTRIN) TAB PO PRN ×2 (12:42→22:58)
--- NOTE | 2017-07-13 15:34 | Consultation (CHS) ---
HPI History of Present Illness: 36 yo male with history of [place] syndrome and hypertrophic cardiomyopathy found to have periappendiceal abscess after a few weeks of illness. He had an IR drain placed and reports he is feeling okay but has noted increase in his heart palpitations which causes him to take a deep breath which hurts his lower abdomen. 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 Date seen by provider: Jul 13, 2017 Time Seen by Provider: 11:24 Attending Physician Myles Riley DO PCP Jakob,[facility] Date of Admission Jul 12, 2017 at 12:57 Home Medications Home Medications Reviewed patient Home Medication Reconciliation Form Allergies Coded Allergies: codeine (Verified Allergy, Severe, RAISES HEART RATE, 06/18/14) [id number] Hx Patient Social History Alcohol Use: Denies Use Recreational Drug Use: No Smoking Status: Never a Smoker Recent Foreign Travel: No Contact w/other who traveled: No Recent Hopitalizations: No Recent Infectious Disease Expo: No Physical Abuse Screen: No Sexual Abuse: No Immunizations Up To Date Date of Pneumonia Vaccine: Jul 03, 2007 Date of Influenza Vaccine: May 29, 2012 Past Medical History PMHx: Velasquez syndrome Hypertrophic cardiomyopathy Family Medical History Significant Family History: Heart Disease Review of Systems (CHC) Constitutional: fever EENTM: no symptoms reported Respiratory: No cough, No short of breath Cardiovascular: No chest pain, palpitations Gastrointestinal: see HPI Genitourinary: no symptoms reported Musculoskeletal: no symptoms reported Skin: no symptoms reported Psychiatric/Neurological: No Symptoms Reported Reviewed Test Results Reviewed Test Results Lab Laboratory Tests Test 07/12/17 11:10 07/13/17 05:43 Range/Units White Blood Count 12.0 H 14.4 H 4.3-11.0 10^3/uL Red Blood Count 4.68 4.67 4.35-5.85 10^6/uL Hemoglobin 13.4 13.3 13.3-17.7 G/DL Hematocrit 38 L 38 L 40-54 % Mean Corpuscular Volume 82 82 80-99 FL Mean Corpuscular Hemoglobin 29 29 25-34 PG Mean Corpuscular Hemoglobin Concent 35 35 32-36 G/DL Red Cell Distribution Width 12.4 12.7 10.0-14.5 % Platelet Count 272 247 130-400 10^3/uL Mean Platelet Volume 10.4 10.3 7.4-10.4 FL Neutrophils (%) (Auto) 82 H 84 H 42-75 % Lymphocytes (%) (Auto) 5 L 5 L 12-44 % Monocytes (%) (Auto) 12 11 0-12 % Eosinophils (%) (Auto) 0 0 0-10 % Basophils (%) (Auto) 0 0 0-10 % Neutrophils # (Auto) 9.8 H 12.1 H 1.8-7.8 X 10^3 Lymphocytes # (Auto) 0.6 L 0.7 L 1.0-4.0 X 10^3 Monocytes # (Auto) 1.5 H 1.5 H 0.0-1.0 X 10^3 Eosinophils # (Auto) 0.1 0.0 0.0-0.3 10^3/uL Basophils # (Auto) 0.0 0.0 0.0-0.1 10^3/uL Neutrophils % (Manual) 73 % Lymphocytes % (Manual) 10 % Monocytes % (Manual) 10 % Eosinophils % (Manual) 0 % Basophils % (Manual) 0 % Band Neutrophils 7 % Rouleau SLIGHT Urine Color CANDELARIA H Urine Clarity CLEAR Urine pH 6 5-9 Urine Specific [place] 1.020 1.016-1.022 Urine Protein 2+ H NEGATIVE Urine Glucose (UA) NEGATIVE NEGATIVE Urine Ketones 1+ H NEGATIVE Urine Nitrite NEGATIVE NEGATIVE Urine Bilirubin 2+ H NEGATIVE Urine Urobilinogen 12 H NORMAL MG/DL Urine Leukocyte Esterase 1+ H NEGATIVE Urine RBC (Auto) 1+ H NEGATIVE Urine RBC RARE /HPF Urine WBC 5-10 H /HPF Urine Squamous Epithelial Cells 0-2 /HPF Urine Renal Epithelial Cells NONE /HPF Urine Crystals NONE /LPF Urine Bacteria TRACE /HPF Urine Casts NONE /LPF Urine Mucus LARGE H /LPF Urine Culture Indicated YES Sodium Level 137 138 135-145 MMOL/L Potassium Level 3.3 L 3.9 3.6-5.0 MMOL/L Chloride Level 104 109 H 98-107 MMOL/L Carbon Dioxide Level 26 19 L 21-32 MMOL/L Anion Gap 7 10 5-14 MMOL/L Blood Urea Nitrogen 8 8 7-18 MG/DL Creatinine 0.70 0.64 0.60-1.30 MG/DL Estimat Glomerular Filtration Rate > 60 > 60 BUN/Creatinine Ratio 11 13 Glucose Level 105 96 70-105 MG/DL Calcium Level 8.8 8.3 L 8.5-10.1 MG/DL Total Bilirubin 0.8 0.1-1.0 MG/DL Aspartate Amino Transf (AST/SGOT) 15 5-34 U/L Alanine Aminotransferase (ALT/SGPT) 25 0-55 U/L Alkaline Phosphatase 125 40-136 U/L Total Protein 6.6 6.4-8.2 GM/DL Albumin 3.5 3.2-4.5 GM/DL Radiology CT abdomen/pelvis 07/12/17: "IMPRESSION: 1. A 7 cm fluid collection in retrocecal location suggestive of an appendiceal abscess. 2. Moderate splenomegaly." Physical Exam-(CHC) Physical Exam Vital Signs VS - Last 72 Hours, by Label 07/12/17 07/12/17 07/12/17 07/12/17 10:52 13:26 15:00 16:12 Temp 98.7 99.9 Pulse 76 82 77 Resp 18 18 22 B/P (MAP) 113/64 118/56 Pulse Ox 96 98 98 O2 Delivery Room Air Room Air Room Air 07/12/17 07/12/17 07/12/17 07/12/17 19:33 20:00 20:05 21:00 Temp 102.6 103.1 102.4 Pulse 98 Resp 26 22 B/P (MAP) 122/74 Pulse Ox 94 O2 Delivery Room Air 07/12/17 07/12/17 07/13/17 07/13/17 21:54 23:50 00:00 01:01 Temp 101.7 102.7 102.7 99.7 Pulse 101 Resp 21 B/P (MAP) 126/69 Pulse Ox 96 O2 Delivery Room Air 07/13/17 07/13/17 07/13/17 07/13/17 04:00 08:00 12:00 12:42 Temp 98.5 98.1 100.4 100.4 Pulse 85 84 93 Resp 19 20 24 B/P (MAP) 114/69 122/56 136/66 Pulse Ox 96 97 96 O2 Delivery Room Air Room Air Room Air 07/13/17 13:23 Temp 97.3 Capillary Refill : Less Than 3 Seconds General Appearance: no apparent distress HEENT: other (hypertelorism, down slanting eyes and low set ears) Respiratory: lungs clear, normal breath sounds Cardiovascular: tachycardia, gallop/S3 Gastrointestinal: normal bowel sounds, soft, other (drain present in RLQ with sanguinous drainage noted) Extremities: no pedal edema Neurologic/Psychiatric: alert, normal mood/affect Skin: normal color, warm/dry Assessment/Plan Assessment/Plan Admission Dx Appendiceal abscess Hypertrophic cardiomyopathy Plan Appendiceal abscess- management per Dr. Riley -IR drain placed, on zoysn and flagyl Hypertrophic cardiomyopathy- no sign of cardiovascular compromise currently, will resume atenolol. Recommended he re-establish with Cardiology. His last echocardiogram was in 2013 and showed an ASD, mild MR and EF 60%. If he should need to have surgery, would recommend Cardiology evaluation pre-op. Clinical Quality Measures DVT/VTE Risk/Contraindication: Risk Factor Score Per Nursin RFS Level Per Nursing on Admit: 1=Low/No VTE PPX Copy Copies To 1: KEVIN PETERSEN MD, BETHANY N MD Jul 13, 2017 15:34
[2017-07-13 16:14] VITALS: BP 107/57
--- NOTE | 2017-07-13 17:09 | Progress Note ---
Subjective Date Seen by Provider: Jul 13, 2017 Time Seen by Provider: 08:36 Subjective/Events-last exam Patient's final same as yesterday may be a little bit less tender. Patient had fever with MAXIMUM TEMPERATURE 102.7. Patient with purulent drainage from drain. His white count did slightly increase. Patient without any nausea vomiting sweats chills shortness of breath or chest pain Objective Exam Vital Signs Date Time Temp Pulse Resp B/P (MAP) Pulse Ox O2 Delivery O2 Flow Rate FiO2 07/13/17 16:14 97.9 84 22 107/57 95 Room Air 07/13/17 13:23 97.3 07/13/17 12:42 100.4 07/13/17 12:00 100.4 93 24 136/66 96 Room Air 07/13/17 08:00 98.1 84 20 122/56 97 Room Air 07/13/17 04:00 98.5 85 19 114/69 96 Room Air 07/13/17 01:01 99.7 07/13/17 00:00 102.7 101 21 126/69 96 Room Air 07/12/17 23:50 102.7 07/12/17 21:54 101.7 07/12/17 21:00 102.4 22 07/12/17 20:05 07/12/17 20:00 103.1 98 26 122/74 94 Room Air 07/12/17 19:33 102.6 Capillary Refill : Less Than 3 Seconds General Appearance: No Apparent Distress HEENT: PERRL/EOMI Neck: Non Tender, Supple Respiratory: No Accessory Muscle Use, No Respiratory Distress Cardiovascular: Regular Rate, Rhythm Gastrointestinal: soft, other (drain present in RLQ , tenderness to palpation right lower quadrant region, no guarding or rebounding) Extremity: Non Tender Neurologic/Psychiatric: Alert, Oriented x3, No Motor/Sensory Deficits, Normal Mood/Affect Skin: Warm/Dry Lymphatic: No Adenopathy Results Lab Laboratory Tests 07/13/17 05:43: White Blood Count 14.4H, Red Blood Count 4.67, Hemoglobin 13.3, Hematocrit 38L, Mean Corpuscular Volume 82, Mean Corpuscular Hemoglobin 29, Mean Corpuscular Hemoglobin Concent 35, Red Cell Distribution Width 12.7, Platelet Count 247, Mean Platelet Volume 10.3, Neutrophils (%) (Auto) 84H, Lymphocytes (%) (Auto) 5L , Monocytes (%) (Auto) 11, Eosinophils (%) (Auto) 0, Basophils (%) (Auto) 0, Neutrophils # (Auto) 12.1H, Lymphocytes # (Auto) 0.7L, Monocytes # (Auto) 1.5H, Eosinophils # (Auto) 0.0, Basophils # (Auto) 0.0, Sodium Level 138, Potassium Level 3.9, Chloride Level 109H, Carbon Dioxide Level 19L, Anion Gap 10, Blood Urea Nitrogen 8, Creatinine 0.64, Estimat Glomerular Filtration Rate > 60, BUN/ Creatinine Ratio 13, Glucose Level 96, Calcium Level 8.3L Microbiology 07/12/17 Urine Culture - Preliminary, Resulted NO GROWTH 07/12/17 Gram Stain - Final, Resulted 07/12/17 Anaerobic Culture, Resulted Pending 07/12/17 Surgical Culture - Preliminary, Resulted Escherichia Coli Gram Positive Cocci In Chains Assessment/Plan Assessment/Plan Assessment/Plan Patient is a 36-year-old male with perforated appendicitis with abscess which is 7 cm in largest diameter. Velasquez syndrome, UTI. Dr. Elizabeth placed drain. Continue Zosyn culture growing Escherichia coli and gram-positive cocci NPO for now IV hydration repeat labs in am Clinical Quality Measures DVT/VTE Risk/Contraindication: Risk Factor Score Per Nursin RFS Level Per Nursing on Admit: 1=Low/No VTE PPX KATTY CLEVELAND DO Jul 13, 2017 17:09
[2017-07-13 19:38] VITALS: BP 120/58
[2017-07-13] MEDS ORDERED: ATENOLOL 50 MG (TENORMIN) TAB ONE (21:26)
[2017-07-13] MEDS: ATENOLOL 50 MG (TENORMIN) TAB PO SCH (21:37)
[2017-07-13] MEDS: ONDANSETRON 4 MG/2 ML (SDV) Z0FRAN IV PRN (22:58)
[2017-07-14] VITALS: BP 133/63
[2017-07-14] MEDS: metroNIDAZOLE 500MG/100ML IVPB 100 ML IV SCH ×2 (00:03→09:14)
[2017-07-14] MEDS: NS IV 1000 ML 1,000 ML IV SCH ×4 (00:05→22:57)
[2017-07-14] MEDS: fentaNYL INJECTION 100 MCG/2 ML AMP IV PRN ×3 (02:28→21:13)
[2017-07-14] MEDS: PIPERACILLIN/TAZOBACTAM 4.5 GM/NS 100 ML IVPB IV SCH ×4 (03:39→11:24)
[2017-07-14 04:00] VITALS: BP 107/56
[2017-07-14] MEDS: LACTOBACILLUS Acidoph/Bulgar (LACTINEX/FLORANEX) TAB PO SCH ×3 (06:02→16:21)
[2017-07-14 06:23] LABS: BASOPHILS % (AUTO) 0 % (0-10); EOSINOPHILS # (AUTO) 0.1 10^3/uL (0.0-0.3); EOSINOPHILS % (AUTO) 1 % (0-10); LYMPHOCYTES # (AUTO) 0.7 X 10^3 (1.0-4.0); LYMPHOCYTES % (AUTO) 4 % (12-44); MEAN CORPUSCULAR HEMOGLOBIN 29 PG (25-34); MEAN CORPUSCULAR HGB CONC 35 G/DL (32-36); MEAN CORPUSCULAR VOLUME 83 FL (80-99); MEAN PLATELET VOLUME 10.2 FL (7.4-10.4); MONOCYTES # (AUTO) 1.4 X 10^3 (0.0-1.0); MONOCYTES % (AUTO) 8 % (0-12); NEUTROPHILS # (AUTO) 15.5 X 10^3 (1.8-7.8); NEUTROPHILS % (AUTO) 88 % (42-75); PLATELET COUNT 240 10^3/uL (130-400); RED BLOOD COUNT 4.28 10^6/uL (4.35-5.85); RED CELL DISTRIBUTION WIDTH 12.6 % (10.0-14.5); WHITE BLOOD COUNT 17.8 10^3/uL (4.3-11.0)
[2017-07-14 06:50] LABS: ALANINE AMINOTRANSFERASE 19 U/L (0-55); ALBUMIN 2.8 GM/DL (3.2-4.5); ANION GAP 10 MMOL/L (5-14); ASPARTATE AMINO TRANSFERASE 12 U/L (5-34); BILIRUBIN,TOTAL 1.1 MG/DL (0.1-1.0); BLOOD UREA NITROGEN 15 MG/DL (7-18); BUN/CREATININE RATIO 25; CALCIUM 8.3 MG/DL (8.5-10.1); CARBON DIOXIDE 18 MMOL/L (21-32); CHLORIDE 111 MMOL/L (98-107); CREATININE SERUM 0.61 MG/DL (0.60-1.30); GFR ESTIMATED > 60; GLUCOSE 88 MG/DL (70-105); POTASSIUM 3.7 MMOL/L (3.6-5.0); SODIUM 139 MMOL/L (135-145); TOTAL PROTEIN 5.4 GM/DL (6.4-8.2)
[2017-07-14 08:00] VITALS: BP 123/58
[2017-07-14] MEDS ORDERED: ATENOLOL 25 MG (TENORMIN) TAB PO SCH (09:00)
[2017-07-14] MEDS: CATHETER FLUSH 10 ML SYR IV SCH ×2 (09:14→20:43)
[2017-07-14] MEDS: ATENOLOL 25 MG (TENORMIN) TAB PO SCH (09:14)
[2017-07-14] MEDS: ATENOLOL 50 MG (TENORMIN) TAB PO SCH (09:14)
[2017-07-14] MEDS: ONDANSETRON 4 MG/2 ML (SDV) Z0FRAN IV PRN ×2 (10:33→19:41)
[2017-07-14 12:00] VITALS: BP 117/60
--- NOTE | 2017-07-14 12:03 | Consultation-Cardiology ---
HPI-Cardiology Cardiology Consultation: Date of Consultation 07/14/17 Date of Admission Attending Physician Mylse Riley DO Admitting Physician Jakob,[facility] Consulting Physician Anaya KELLY MD HPI: Time Seen by Provider: 11:58 Chief Complaint: abdominal pain this is a 36-year-old gentleman who has history of Velasquez's syndrome. He has history of ASD, hypertrophic cardiomyopathy. He also has complains of shortness of breath and palpitations when he does not take atenolol as an outpatient. Otherwise he has good functional capacity. His last follow-up with cardiology was over 6 years ago. He presents during this admission with complain of abdominal pain and has found to have a ruptured appendicitis. A drain was placed yesterday by radiology. The patient is on broad-spectrum IV antibiotics. Review of Systems-Cardiology Review of Systems Constitutional: No As described under HPI, No no symptoms reported, No chills, fever, No lightheadedness, No malaise, No tiredness, No weight loss, No weight gain, No other Eyes: No As described under HPI, No no symptoms reported, No blindness, No blurred vision, No contact lenses, No drainage, No decreased acuity, No foreign body sensation, No glasses, No inflammation, No pain, No photophobia, No previous injury, No shadows, No tunnel vision, No other, No vision change Ears/Nose/Throat: No As described under HPI, No no symptoms reported, No chronic hearing loss, No epistaxis, No ear discharge, No ear pain, No loose teeth, No mouth pain, No mouth swelling, No nasal drainage, No nose pain, No recent hearing loss, No throat pain, No throat swelling, No ulcerations, No other Respiratory: No no symptoms reported, No As described under HPI, No cough, No orthopnea, No shortness of breath, No SOB with excertion, No SOB at rest, No stridor, No wheezing, No other Cardiovascular: No no symptoms reported, No As described under HPI, No chest pain, No edema, No irregular heart rate, No lightheadedness, No palpitations, No syncope, No other Gastrointestinal: abdominal pain Genitourinary: No no symptoms reported, No As described under HPI, No burning, No dysuria, No discharge, No frequency, No flank pain, No hematuria, No incontinence, No pain, No urgency, No other, No urine frequency changes, No urine coloration changes Musculoskeletal: No no symptoms reported, No As describe under HPI, No back pain, No gout, No joint pain, No joint swelling, No muscle pain, No muscle stiffness, No neck pain, No other Skin: No no symptoms reported, No As described under HPI, No change in color, No change in hair/nails, No dryness, No lesions, No lumps, No rash, No other, No skin related problems, No ulcerations, No rash on exposed areas, No ulcerations on exposed areas Psychiatric/Neurological: No no symptoms reported, No As described under HPI, No anxiety, No depression, No emotional problems, No headache, No numbness, No pre-existing deficit, No seizure, No tingling, No tremors, No weakness, No other , No focal weakness, No syncope Hematologic: No no symptoms reported, No As described under HPI, No anemia, No blood clots, No easy bleeding, No easy bruising, No swollen glands, No other, No bleeding abnormalities [id number] Hx Patient Social History Alcohol Use: Denies Use Recreational Drug Use: No Smoking Status: Never a Smoker Recent Foreign Travel: No Recent Infectious Disease Expo: No Hospitalization with Isolation: Denies Physical Abuse Screen: No Sexual Abuse: No Immunizations Up To Date Date of Pneumonia Vaccine: Jul 03, 2007 Date of Influenza Vaccine: May 29, 2012 Past Medical History PMH As described under Assessment. Family Medical History Family History: Myocardial infarction 19 FATHER Allergies and Home Medications Allergies Coded Allergies: codeine (Verified Allergy, Severe, RAISES HEART RATE, 06/18/14) Home Medications Atenolol 25 Mg Tablet, 75 MG PO DAILY, (Reported) TAKES 3 (25MG) TABLETS Ibuprofen 200 Mg Tablet, 400 MG PO Q6H PRN for PAIN-MILD, (Reported) TAKES 2 (200MG) TABLETS Multivitamin 1 Each Tablet, 1 TAB PO DAILY, (Reported) Sulfamethoxazole/Trimethoprim 1 Each Tablet, 1 TAB PO BID for 14 Days, (Reported ) 14 DAY THERAPY FILLED 07-10-17 Physical Exam-Cardiology Physical Exam Vital Signs/I&O Vital Sign - Last 12Hours 07/14/17 07/14/17 07/14/17 07/14/17 00:00 00:04 04:00 08:00 Temp 100.8 100.0 97.1 98.1 Pulse 97 84 91 Resp 18 16 22 B/P (MAP) 133/63 107/56 123/58 Pulse Ox 95 97 97 O2 Delivery Room Air Room Air Room Air Capillary Refill : Less Than 3 Seconds Constitutional: No appears stated age, No AAO x 3, No apparent distress, No PERRL, No well-developed, No well-nourished, No other HEENT: No PERRL, No normal ENT inspection, No TMs normal, No pharynx normal, No scleral icterus (R), No scleral icterus (L), No pale conjunctivae (R), No pale conjunctivae (L), No photophobia, No TM abnormal (R), No TM abnormal (L), No pharyngeal erythema, No tonsillar exudate, No other, No discharge, No EOMI, No hearing is well preserved, No hard of hearing, No oral hygience is good, No ulceration, No xanthelasmas are seen Neck: No non-tender, No full range of motion, No supple, No normal inspection, No carotid bruit, No limited range of motion, No lymphadenopathy (R), No lymphadenopathy (L), No tender lateral, No tender midline, No thyromegaly, No other, No carotid pulses are 2 + bilaterally, No with good upstrokes Respiratory: No accessory muscle use, No respiratory distress, No chest tender , No chest expansion is symmetric, No chest is bilaterally symmetric, No lungs clear to percussion, No lungs clear to auscultation, No crackles, No rhonchi, No rales, No stridor, No wheezing, No pleural rub, No other Cardiovascular: No regular rate-rhythm, No irregularly irregular, No extra beats, No parasternal heave is noted, No JVD, No edema, No bradycardia, No tachycardia, No point of maximal impulse, No cardiac thrills are palpable, No S1 and S2, No gallop/S3, No gallop/S4, No diastolic murmur, systolic murmur, No friction rub, No click, No other Gastrointestinal: other (drain in place.) Rectal: deferred Extremities: No normal range of motion, No non-tender, No normal inspection, No pedal edema, No calf tenderness, No normal capillary refill, No pelvis stable , No calf tenderness, No inflammation, No pedal edema, No slow capillary refill , No swelling, No other, No abrasion, No clubbing, No cyanosis, No ecchymosis, No laceration, No no lower extremity edema bilateral, No significant edema, No tenderness, No wound Neurologic/Psychiatric: No radiocommunications technician II-XII nml as tested, No no motor/sensory deficits, No alert, No normal mood/affect, No oriented x 3, No abnormal cerebellar tests, No abnormal radiocommunications technician II-XII, No abnormal gait, No aphasia, No EOM palsy, No facial droop, No motor weakness, No sensory deficit, No depressed affect, No disoriented x 3, No other, No grossly intact, No power is 5/5 both on sides Skin: No normal color, No warm/dry, No cyanosis, No cool, No diaphoresis, No damp, No ecchymosis, No jaundice, No mottled, No pallor, No rash, No tattoos/ piercings, No ulcerations, No rash on exposed areas, No ulcerations on exposed areas, No other Data Review Labs Laboratory Tests 07/14/17 05:55: White Blood Count 17.8H, Red Blood Count 4.28L, Hemoglobin 12.3L, Hematocrit 36L , Mean Corpuscular Volume 83, Mean Corpuscular Hemoglobin 29, Mean Corpuscular Hemoglobin Concent 35, Red Cell Distribution Width 12.6, Platelet Count 240, Mean Platelet Volume 10.2, Neutrophils (%) (Auto) 88H, Lymphocytes (%) (Auto) 4L , Monocytes (%) (Auto) 8, Eosinophils (%) (Auto) 1, Basophils (%) (Auto) 0, Neutrophils # (Auto) 15.5H, Lymphocytes # (Auto) 0.7L, Monocytes # (Auto) 1.4H, Eosinophils # (Auto) 0.1, Basophils # (Auto) 0.0, Sodium Level 139, Potassium Level 3.7, Chloride Level 111H, Carbon Dioxide Level 18L, Anion Gap 10, Blood Urea Nitrogen 15, Creatinine 0.61, Estimat Glomerular Filtration Rate > 60, BUN/ Creatinine Ratio 25, Glucose Level 88, Calcium Level 8.3L, Total Bilirubin 1.1H , Aspartate Amino Transf (AST/SGOT) 12, Alanine Aminotransferase (ALT/SGPT) 19, Alkaline Phosphatase 98, Total Protein 5.4L, Albumin 2.8L Microbiology 07/12/17 Urine Culture - Final, Complete NO GROWTH 07/12/17 Gram Stain - Final, Resulted 07/12/17 Anaerobic Culture - Preliminary, Resulted Prob Anaerobic Gram Neg Jayson 07/12/17 Surgical Culture - Preliminary, Resulted Escherichia Coli Nonenterococcus (Chains Cocci) A/P-Cardiology Assessment/Admission Diagnosis Ruptured Appendicitis, Preop Cardiovascular evaluation, Edison's syndrome with ASD and HOCM Plan ruptured appendicitis and possible abdominal surgery. Patient will be considered at intermediate risk for major perioperative cardiovascular events undergoing a moderate risk noncardiac surgery. I do not see any cardiac contraindication for the above-mentioned procedure. The patient has history of Edison's syndrome with ASD and hypertrophic cardiomyopathy. I will arrange cardiology follow-up an old records will be requested. Echocardiogram will be done. he may need evaluation for palpitation as an outpatient. I will continue to follow. Thank you for your consultation. Please call me if you have any questions. Esperanza Kelly MD, FACP, FACC, FSCAI, FHRS, CCDS Interventional Cardiology Cardiac Electrophysiology Vascular Medicine and Endovascular Interventions Clinical Quality Measures DVT/VTE Risk/Contraindication: Risk Factor Score Per Nursin RFS Level Per Nursing on Admit: 1=Low/No VTE PPX Anaya KELLY MD Jul 14, 2017 12:03 pm
[2017-07-14] MEDS: MEROPENEM 500 MG/NS 100 ML IVPB IV SCH ×6 (12:33→23:10)
[2017-07-14] MEDS: FAMOTIDINE 20MG/2ML IV (PEPCID) IVP SCH (13:56)
[2017-07-14] MEDS ORDERED: MEROPENEM 1,000 MG in NS (IVPB) 100 ML IV SCH (14:00)
--- NOTE | 2017-07-14 14:57 | Progress Note ---
Subjective Date Seen by Provider: Jul 14, 2017 Time Seen by Provider: 10:00 Subjective/Events-last exam Patient feeling better today he states. He has been having fever and wbc up to 17.8. Still with purulent drainage. Cultures sensitivities reviewed. Patient no n/v sweats chills shortness of breath or chest pain. Some slight pain around drain. Objective Exam Vital Signs Date Time Temp Pulse Resp B/P (MAP) Pulse Ox O2 Delivery O2 Flow Rate FiO2 07/14/17 12:00 96.5 77 18 117/60 97 Room Air 07/14/17 08:00 98.1 91 22 123/58 97 Room Air 07/14/17 04:00 97.1 84 16 107/56 97 Room Air 07/14/17 00:04 100.0 07/14/17 00:00 100.8 97 18 133/63 95 Room Air 07/13/17 22:58 102.4 07/13/17 19:38 98.6 81 19 120/58 97 Room Air 07/13/17 16:14 97.9 84 22 107/57 95 Room Air I & O 07/15/17 07:00 Intake Total 50 ml Output Total 230 ml Balance -180 ml Capillary Refill : Less Than 3 Seconds General Appearance: No Apparent Distress HEENT: PERRL/EOMI Neck: Non Tender, Supple Respiratory: No Accessory Muscle Use, No Respiratory Distress Cardiovascular: Regular Rate, Rhythm Gastrointestinal: soft, other (drain present in RLQ purlent drainage , tenderness to palpation right lower quadrant region, no guarding or rebounding slight erythema around drain) Extremity: Non Tender Neurologic/Psychiatric: Alert, Oriented x3, No Motor/Sensory Deficits, Normal Mood/Affect Skin: Warm/Dry Lymphatic: No Adenopathy Results Lab Laboratory Tests 07/14/17 05:55: White Blood Count 17.8H, Red Blood Count 4.28L, Hemoglobin 12.3L, Hematocrit 36L , Mean Corpuscular Volume 83, Mean Corpuscular Hemoglobin 29, Mean Corpuscular Hemoglobin Concent 35, Red Cell Distribution Width 12.6, Platelet Count 240, Mean Platelet Volume 10.2, Neutrophils (%) (Auto) 88H, Lymphocytes (%) (Auto) 4L , Monocytes (%) (Auto) 8, Eosinophils (%) (Auto) 1, Basophils (%) (Auto) 0, Neutrophils # (Auto) 15.5H, Lymphocytes # (Auto) 0.7L, Monocytes # (Auto) 1.4H, Eosinophils # (Auto) 0.1, Basophils # (Auto) 0.0, Sodium Level 139, Potassium Level 3.7, Chloride Level 111H, Carbon Dioxide Level 18L, Anion Gap 10, Blood Urea Nitrogen 15, Creatinine 0.61, Estimat Glomerular Filtration Rate > 60, BUN/ Creatinine Ratio 25, Glucose Level 88, Calcium Level 8.3L, Total Bilirubin 1.1H , Aspartate Amino Transf (AST/SGOT) 12, Alanine Aminotransferase (ALT/SGPT) 19, Alkaline Phosphatase 98, Total Protein 5.4L, Albumin 2.8L Microbiology 07/12/17 Urine Culture - Final, Complete NO GROWTH 07/12/17 Gram Stain - Final, Resulted 07/12/17 Anaerobic Culture - Preliminary, Resulted Prob Anaerobic Gram Neg Jayson 07/12/17 Surgical Culture - Preliminary, Resulted Escherichia Coli Nonenterococcus (Chains Cocci) Assessment/Plan Assessment/Plan Assessment/Plan Patient is a 36-year-old male with perforated appendicitis with abscess which is 7 cm in largest diameter. Velasquez syndrome, UTI. Dr. Elizabeth placed drain. Switched abx to Meropenem. wbc is up and had fevers last night but no fevers today so far, by physical exam his abdomen is a little better. give clears and npo after midnight Consult cardiology IV hydration repeat labs in am continue conservative management at this time. may need to repeat ct scan to re -evaluate abscess Clinical Quality Measures DVT/VTE Risk/Contraindication: Risk Factor Score Per Nursin RFS Level Per Nursing on Admit: 1=Low/No VTE PPX KATTY CLEVELAND DO Jul 14, 2017 14:57
[2017-07-14] MEDS: IBUPROFEN 800 MG (MOTRIN) TAB PO PRN (15:35)
[2017-07-14 16:00] VITALS: BP 124/63
[2017-07-14] MEDS: ACETAMINOPHEN 325 MG TABLET/CAPLET (TYLENOL) PO PRN (16:23)
[2017-07-14 19:59] VITALS: BP 114/61
[2017-07-15] VITALS: BP 132/74
[2017-07-15] MEDS: fentaNYL INJECTION 100 MCG/2 ML AMP IV PRN ×4 (00:10→11:38)
[2017-07-15 04:00] VITALS: BP 139/67
[2017-07-15] MEDS: MEROPENEM 500 MG/NS 100 ML IVPB IV SCH ×4 (05:14→11:37)
[2017-07-15] MEDS: LACTOBACILLUS Acidoph/Bulgar (LACTINEX/FLORANEX) TAB PO SCH ×2 (05:14→11:37)
[2017-07-15] MEDS: ONDANSETRON 4 MG/2 ML (SDV) Z0FRAN IV PRN (05:18)
[2017-07-15] MEDS: NS IV 1000 ML 1,000 ML IV SCH (07:30)
[2017-07-15 08:00] VITALS: BP 148/75
[2017-07-15] MEDS: CATHETER FLUSH 10 ML SYR IV SCH (08:08)
[2017-07-15] MEDS: ATENOLOL 25 MG (TENORMIN) TAB PO SCH (08:08)
[2017-07-15] MEDS: ATENOLOL 50 MG (TENORMIN) TAB PO SCH (08:08)
[2017-07-15] MEDS: FAMOTIDINE 20MG/2ML IV (PEPCID) IVP SCH (08:08)
[2017-07-15 08:38] LABS: RED BLOOD COUNT 4.2 10^6/uL (4.35-5.85); RED CELL DISTRIBUTION WIDTH 12.7 % (10.0-14.5); WHITE BLOOD COUNT 11.4 10^3/uL (4.3-11.0)
[2017-07-15 08:52] LABS: ANION GAP 9 MMOL/L (5-14); BLOOD UREA NITROGEN 13 MG/DL (7-18); BUN/CREATININE RATIO 24; CALCIUM 7.8 MG/DL (8.5-10.1); CARBON DIOXIDE 20 MMOL/L (21-32); CHLORIDE 109 MMOL/L (98-107); CREATININE SERUM 0.54 MG/DL (0.60-1.30); GFR ESTIMATED > 60; GLUCOSE 98 MG/DL (70-105); POTASSIUM 3.4 MMOL/L (3.6-5.0); SODIUM 138 MMOL/L (135-145)
--- NOTE | 2017-07-15 10:38 | Cardiology Progress Note ---
Cardiology SOAP Progress Note Subjective: No significant cardiac complaints Objective: I&O/Vital Signs Vital Sign - Last 12Hours 07/15/17 07/15/17 04:00 08:00 Temp 98.4 98.6 Pulse 92 90 Resp 17 18 B/P (MAP) 139/67 148/75 Pulse Ox 97 96 O2 Delivery Room Air Room Air Weight (Pounds): 189 Weight (Ounces): 0.0 Weight (Calculated Kilograms): 85.862097 Constitutional: No appears stated age, No AAO x 3, No apparent distress, No PERRL, No well-developed, No well-nourished, No other Respiratory: No accessory muscle use, No respiratory distress, No chest tender , No chest expansion is symmetric, No chest is bilaterally symmetric, No lungs clear to percussion, No lungs clear to auscultation, No crackles, No rhonchi, No rales, No stridor, No wheezing, No pleural rub, No other Cardiovascular: No regular rate-rhythm, No irregularly irregular, No extra beats, No parasternal heave is noted, No JVD, No edema, No bradycardia, No tachycardia, No point of maximal impulse, No cardiac thrills are palpable, No S1 and S2, No gallop/S3, No gallop/S4, No diastolic murmur, systolic murmur, No friction rub, No click, No other Gastrointestional: other (drain in place.) Extremities: No normal range of motion, No non-tender, No normal inspection, No pedal edema, No calf tenderness, No normal capillary refill, No pelvis stable , No calf tenderness, No inflammation, No pedal edema, No slow capillary refill , No swelling, No other, No abrasion, No clubbing, No cyanosis, No ecchymosis, No laceration, No no lower extremity edema bilateral, No significant edema, No tenderness, No wound Neurologic/Psychiatric: No geriatric physical therapist II-XII nml as tested, No no motor/sensory deficits, No alert, No normal mood/affect, No oriented x 3, No abnormal cerebellar tests, No abnormal geriatric physical therapist II-XII, No abnormal gait, No aphasia, No EOM palsy, No facial droop, No motor weakness, No sensory deficit, No depressed affect, No disoriented x 3, No other, No grossly intact, No power is 5/5 both on sides Skin: No normal color, No warm/dry, No cyanosis, No cool, No diaphoresis, No damp, No ecchymosis, No jaundice, No mottled, No pallor, No rash, No tattoos/ piercings, No ulcerations, No rash on exposed areas, No ulcerations on exposed areas, No other Results/Procedures: Labs Laboratory Tests 07/15/17 08:25: White Blood Count 11.4H, Red Blood Count 4.20L, Hemoglobin 12.0L, Hematocrit 35L , Mean Corpuscular Volume 83, Mean Corpuscular Hemoglobin 29, Mean Corpuscular Hemoglobin Concent 35, Red Cell Distribution Width 12.7, Platelet Count 263, Mean Platelet Volume 10.0, Sodium Level 138, Potassium Level 3.4L, Chloride Level 109H, Carbon Dioxide Level 20L, Anion Gap 9, Blood Urea Nitrogen 13, Creatinine 0.54L, Estimat Glomerular Filtration Rate > 60, BUN/Creatinine Ratio 24, Glucose Level 98, Calcium Level 7.8L Microbiology 07/12/17 Urine Culture - Final, Complete NO GROWTH 07/12/17 Gram Stain - Final, Resulted 07/12/17 Anaerobic Culture - Preliminary, Resulted Bacteroides Fragilis Group 07/12/17 Surgical Culture - Preliminary, Resulted Escherichia Coli Nonenterococcus (Chains Cocci) A/P: Assessment/Dx: Ruptured Appendicitis, Preop Cardiovascular evaluation, Velasquez's syndrome with ASD and HOCM, pericardial effusion. Plan: ruptured appendicitis and possible abdominal surgery. Patient will be considered at intermediate risk for major perioperative cardiovascular events undergoing a moderate risk noncardiac surgery. I do not see any cardiac contraindication for the above-mentioned procedure. The patient has history of [place]'s syndrome with ASD and hypertrophic cardiomyopathy. I will arrange cardiology follow-up an old records will be requested. Echocardiogram showed hypertrophic cardiomyopathy. Pericardial effusion noted on echocardiogram however with no tamponade physiology. We will perform a limited repeat echocardiogram to see any progression of pericardial effusion. he may need evaluation for palpitation as an outpatient. I will continue to follow. Thank you for your consultation. Please call me if you have any questions. Esperanza Kelly MD, FACP, FACC, FSCAI, FHRS, CCDS Interventional Cardiology Cardiac Electrophysiology Vascular Medicine and Endovascular Interventions Anaya KELLY MD Jul 15, 2017 10:38
== END 2017-07-15 12:10 | disposition swing bed (61) | DRG 372 ==
LOC: EDUNIT# 10:21 → ER 10:24 → 4TH 12:57
PROVIDERS: ADMIT Surgery; ATTEND Surgery
PROC: 0D9J30Z Drainage of Appendix with Drainage Device, Percutaneous Approach (ICD-10-PCS; principal; 2017-07-12)
DX: K35.3 Acute appendicitis with localized peritonitis (principal); Q87.1 Congenital malformation syndromes predominantly associated with short stature; I42.4 Endocardial fibroelastosis; Q21.1 Atrial septal defect; N39.0 Urinary tract infection, site not specified; I31.3 Pericardial effusion (noninflammatory); M54.9 Dorsalgia, unspecified; F99 Mental disorder, not otherwise specified
CPT/HCPCS: 36415; 74177; 77012; 80048; 80053; 81000; 85007; 85025; 85027; 87070; 87075; 87077; 87088; 87186; 87205; 93306; 94664; 96361; 96374; 96375

== ENCOUNTER 2017-07-15 11:10 | Inpatient (IN) | payer MEDICARE, MEDICAID ==
[~2017-07-15] VITALS: Ht 170.2 cm; Wt 85.7 kg
[~2017-07-15 11:10] MED LIST changes: +ATEN25TA PO; +MULT-35 PO; +SULF-222 PO
[2017-07-15] MEDS ORDERED: ACETAMINOPHEN 325 MG TABLET/CAPLET (TYLENOL) PO PRN (12:15)
[2017-07-15] MEDS: NS IV 1000 ML 1,000 ML IV SCH ×2 (14:41→21:52)
[2017-07-15] MEDS: fentaNYL INJECTION 100 MCG/2 ML AMP IV PRN (15:17)
[2017-07-15] MEDS: LACTOBACILLUS Acidoph/Bulgar (LACTINEX/FLORANEX) TAB PO SCH (16:52)
[2017-07-15] MEDS: IBUPROFEN 800 MG (MOTRIN) TAB PO PRN (16:53)
[2017-07-15 17:03] VITALS: BP 109/56
[2017-07-15] MEDS: MEROPENEM 500 MG in NS (IVPB) 100 ML IV SCH ×2 (17:46→23:18)
--- NOTE | 2017-07-15 20:08 | Progress Note ---
Subjective Date Seen by Provider: Jul 15, 2017 Time Seen by Provider: 13:15 Subjective/Events-last exam Patient feeling better today. Some fever over night but non since this morning. wbc down today. using incentive spirometer. denies n/v sweats chills shortness of breath or chest pain. drain slight purulent material Objective Exam Vital Signs Date Time Temp Pulse Resp B/P (MAP) Pulse Ox O2 Delivery O2 Flow Rate FiO2 07/15/17 17:03 99.1 74 20 109/56 97 Room Air I & O 07/16/17 07:00 Intake Total 440 ml Output Total 320 ml Balance 120 ml Capillary Refill : General Appearance: No Apparent Distress Neck: Non Tender Respiratory: No Accessory Muscle Use, No Respiratory Distress Cardiovascular: Regular Rate, Rhythm Gastrointestinal: soft (no significant tenderness, slight erythema around drain site) Extremity: Normal Inspection Skin: Warm/Dry Assessment/Plan Assessment/Plan Assessment/Plan perforated appendicitis with abscess s/p Ir drain placement on meropenem wbc going down continue conservative management labs in am Clinical Quality Measures DVT/VTE Risk/Contraindication: Risk Factor Score Per Nursin KATTY CLEVELAND DO Jul 15, 2017 20:08
[2017-07-15] MEDS ORDERED: FAMOTIDINE 20MG/2ML IV (PEPCID) IVP PRN (21:30)
[2017-07-16] MEDS: IBUPROFEN 800 MG (MOTRIN) TAB PO PRN (05:22)
[2017-07-16] MEDS: MEROPENEM 500 MG in NS (IVPB) 100 ML IV SCH ×3 (05:22→18:21)
[2017-07-16] MEDS: fentaNYL INJECTION 100 MCG/2 ML AMP IV PRN ×3 (05:22→20:44)
[2017-07-16] MEDS: NS IV 1000 ML 1,000 ML IV SCH ×4 (05:22→22:41)
[2017-07-16] MEDS: LACTOBACILLUS Acidoph/Bulgar (LACTINEX/FLORANEX) TAB PO SCH ×3 (05:22→17:24)
[2017-07-16 06:00] VITALS: BP 133/65
[2017-07-16 06:00] LABS: BASOPHILS % (AUTO) 0 % (0-10); EOSINOPHILS # (AUTO) 0.1 10^3/uL (0.0-0.3); EOSINOPHILS % (AUTO) 2 % (0-10); LYMPHOCYTES # (AUTO) 0.7 X 10^3 (1.0-4.0); LYMPHOCYTES % (AUTO) 9 % (12-44); MEAN CORPUSCULAR HEMOGLOBIN 28 PG (25-34); MEAN CORPUSCULAR HGB CONC 34 G/DL (32-36); MEAN CORPUSCULAR VOLUME 83 FL (80-99); MONOCYTES # (AUTO) 0.6 X 10^3 (0.0-1.0); MONOCYTES % (AUTO) 7 % (0-12); NEUTROPHILS # (AUTO) 6.2 X 10^3 (1.8-7.8); NEUTROPHILS % (AUTO) 82 % (42-75); PLATELET COUNT 262 10^3/uL (130-400); RED BLOOD COUNT 4.17 10^6/uL (4.35-5.85); RED CELL DISTRIBUTION WIDTH 12.7 % (10.0-14.5); WHITE BLOOD COUNT 7.5 10^3/uL (4.3-11.0)
[2017-07-16 06:17] LABS: ANION GAP 11 MMOL/L (5-14); BLOOD UREA NITROGEN 12 MG/DL (7-18); BUN/CREATININE RATIO 22; CALCIUM 7.8 MG/DL (8.5-10.1); CARBON DIOXIDE 19 MMOL/L (21-32); CHLORIDE 109 MMOL/L (98-107); CREATININE SERUM 0.54 MG/DL (0.60-1.30); GFR ESTIMATED > 60; GLUCOSE 87 MG/DL (70-105); POTASSIUM 3.3 MMOL/L (3.6-5.0); SODIUM 139 MMOL/L (135-145)
[2017-07-16] MEDS: ATENOLOL 50 MG (TENORMIN) TAB PO SCH (09:23)
[2017-07-16] MEDS: ATENOLOL 25 MG (TENORMIN) TAB PO SCH (09:23)
[2017-07-16] MEDS: FAMOTIDINE 20MG/2ML IV (PEPCID) IVP SCH (09:33)
--- NOTE | 2017-07-16 14:59 | Cardiology Progress Note ---
Cardiology SOAP Progress Note Subjective: No cardiac complaints Objective: I&O/Vital Signs Vital Sign - Last 12Hours 07/16/17 07/16/17 06:00 09:15 Temp 99.3 Pulse 97 Resp 19 B/P (MAP) 133/65 Pulse Ox 96 O2 Delivery Room Air Room Air Weight (Pounds): 189 Weight (Ounces): 0.0 Weight (Calculated Kilograms): 85.896451 Constitutional: No appears stated age, No AAO x 3, No apparent distress, No PERRL, No well-developed, No well-nourished, No other Respiratory: No accessory muscle use, No respiratory distress, No chest tender , No chest expansion is symmetric, No chest is bilaterally symmetric, No lungs clear to percussion, No lungs clear to auscultation, No crackles, No rhonchi, No rales, No stridor, No wheezing, No pleural rub, No other Cardiovascular: regular rate-rhythm, No irregularly irregular, No extra beats, No parasternal heave is noted, No JVD, No edema, No bradycardia, No tachycardia , No point of maximal impulse, No cardiac thrills are palpable, No S1 and S2, No gallop/S3, No gallop/S4, No diastolic murmur, No systolic murmur, No friction rub, No click, No other Gastrointestional: No tender, No soft, No round, No distended, No pulsatile mass, No organomegaly, No guarding, No rebound, No tenderness, No hernia, No mass, No audible bowel sounds, No abnormal bowel sounds, No abdominal bruits, No spleenomegaly, No other Extremities: No normal range of motion, No non-tender, No normal inspection, No pedal edema, No calf tenderness, No normal capillary refill, No pelvis stable , No calf tenderness, No inflammation, No pedal edema, No slow capillary refill , No swelling, No other, No abrasion, No clubbing, No cyanosis, No ecchymosis, No laceration, No no lower extremity edema bilateral, No significant edema, No tenderness, No wound Neurologic/Psychiatric: No machine pie maker II-XII nml as tested, No no motor/sensory deficits, No alert, No normal mood/affect, No oriented x 3, No abnormal cerebellar tests, No abnormal machine pie maker II-XII, No abnormal gait, No aphasia, No EOM palsy, No facial droop, No motor weakness, No sensory deficit, No depressed affect, No disoriented x 3, No other, No grossly intact, No power is 5/5 both on sides Skin: No normal color, No warm/dry, No cyanosis, No cool, No diaphoresis, No damp, No ecchymosis, No jaundice, No mottled, No pallor, No rash, No tattoos/ piercings, No ulcerations, No rash on exposed areas, No ulcerations on exposed areas, No other Results/Procedures: Labs Laboratory Tests 07/16/17 05:43: White Blood Count 7.5, Red Blood Count 4.17L, Hemoglobin 11.8L, Hematocrit 35L, Mean Corpuscular Volume 83, Mean Corpuscular Hemoglobin 28, Mean Corpuscular Hemoglobin Concent 34, Red Cell Distribution Width 12.7, Platelet Count 262, Mean Platelet Volume 10.0, Neutrophils (%) (Auto) 82H, Lymphocytes (%) (Auto) 9L , Monocytes (%) (Auto) 7, Eosinophils (%) (Auto) 2, Basophils (%) (Auto) 0, Neutrophils # (Auto) 6.2, Lymphocytes # (Auto) 0.7L, Monocytes # (Auto) 0.6, Eosinophils # (Auto) 0.1, Basophils # (Auto) 0.0, Sodium Level 139, Potassium Level 3.3L, Chloride Level 109H, Carbon Dioxide Level 19L, Anion Gap 11, Blood Urea Nitrogen 12, Creatinine 0.54L, Estimat Glomerular Filtration Rate > 60, BUN /Creatinine Ratio 22, Glucose Level 87, Calcium Level 7.8L A/P: Assessment/Dx: Ruptured Appendicitis, Preop Cardiovascular evaluation, [place]'s syndrome with ASD and HOCM, pericardial effusion. Plan: ruptured appendicitis and possible abdominal surgery. The patient has history of [place]'s syndrome with ASD and hypertrophic cardiomyopathy. I will arrange cardiology follow-up an old records will be requested. Echocardiogram showed hypertrophic cardiomyopathy. Pericardial effusion noted on echocardiogram however with no tamponade physiology. Repeat limited echocardiogram performed today showed no increase in pericardial effusion and no chamber collapse. he may need evaluation for palpitation as an outpatient. I will continue to follow. Thank you for your consultation. Please call me if you have any questions. Esperanza Kelly MD, FACP, FACC, FSCAI, FHRS, CCDS Interventional Cardiology Cardiac Electrophysiology Vascular Medicine and Endovascular Interventions Anaya KELLY MD Jul 16, 2017 2:59 pm
[2017-07-16 18:34] VITALS: BP 136/66
--- NOTE | 2017-07-16 19:50 | Progress Note (SOAP) ---
Subjective Date Seen by Provider: Jul 16, 2017 Time Seen by Provider: 15:20 Subjective/Events-last exam feeling hungry. Afebrile. Reports minimal discomfort around the drain site. Review of Systems General: No Chills, No Night Sweats, No Fatigue, No Malaise HEENT: No Head Aches, No Eye Pain, No Ear Pain, No Dysphasia, No Sinus Congestion, No Post Nasal Drip, No Sore Throat Pulmonary: No Dyspnea, No Cough, No Pleuritic Chest Pain Cardiovascular: No: Chest Pain, Palpitations, Orthopnea, Paroxysmal Noc. Dyspnea, Edema, Lt Headedness Gastrointestinal: Abdominal Pain Genitourinary: No Dysuria, No Frequency, No Incontinence, No Hematuria, No Retention Musculoskeletal: No: other, neck pain, shoulder pain, arm pain, back pain, hand pain, leg pain, foot pain Neurological: No: Weakness, Numbness, Incoordination, Change in speech, Confusion, Seizures, Other Objective Exam Vital Signs Date Time Temp Pulse Resp B/P (MAP) Pulse Ox O2 Delivery O2 Flow Rate FiO2 07/16/17 18:34 98.6 72 20 136/66 98 Room Air 07/16/17 09:15 Room Air 07/16/17 06:00 99.3 97 19 133/65 96 Room Air 07/15/17 20:15 Room Air I & O 07/17/17 07:00 Intake Total 1580 ml Output Total 180 ml Balance 1400 ml Capillary Refill : General Appearance: Anxious Cardiovascular: Regular Rate, Rhythm Gastrointestinal: soft Extremity: Normal Inspection Neurologic/Psychiatric: Alert, Oriented x3 Skin: Warm/Dry Results Lab Laboratory Tests 07/16/17 05:43: White Blood Count 7.5, Red Blood Count 4.17L, Hemoglobin 11.8L, Hematocrit 35L, Mean Corpuscular Volume 83, Mean Corpuscular Hemoglobin 28, Mean Corpuscular Hemoglobin Concent 34, Red Cell Distribution Width 12.7, Platelet Count 262, Mean Platelet Volume 10.0, Neutrophils (%) (Auto) 82H, Lymphocytes (%) (Auto) 9L , Monocytes (%) (Auto) 7, Eosinophils (%) (Auto) 2, Basophils (%) (Auto) 0, Neutrophils # (Auto) 6.2, Lymphocytes # (Auto) 0.7L, Monocytes # (Auto) 0.6, Eosinophils # (Auto) 0.1, Basophils # (Auto) 0.0, Sodium Level 139, Potassium Level 3.3L, Chloride Level 109H, Carbon Dioxide Level 19L, Anion Gap 11, Blood Urea Nitrogen 12, Creatinine 0.54L, Estimat Glomerular Filtration Rate > 60, BUN /Creatinine Ratio 22, Glucose Level 87, Calcium Level 7.8L Assessment/Plan Assessment/Plan Assess & Plan/Chief Complaint delayed presentation of appendicitis with an abscess. Percutaneous drainage completed. Continue IV antibiotics and possibly consider a follow-up CT scan in 48 hours. Final Diagnosis appendix abscess Clinical Quality Measures DVT/VTE Risk/Contraindication: Risk Factor Score Per Nursin ABBEY HARDEN MD Jul 16, 2017 7:50 pm
[2017-07-17] MEDS: MEROPENEM 500 MG in NS (IVPB) 100 ML IV SCH ×4 (00:16→19:04)
[2017-07-17] MEDS: fentaNYL INJECTION 100 MCG/2 ML AMP IV PRN ×6 (02:41→23:41)
[2017-07-17 05:29] LABS: RED BLOOD COUNT 4.12 10^6/uL (4.35-5.85); RED CELL DISTRIBUTION WIDTH 12.6 % (10.0-14.5); WHITE BLOOD COUNT 7.3 10^3/uL (4.3-11.0)
[2017-07-17 05:44] LABS: ANION GAP 10 MMOL/L (5-14); BLOOD UREA NITROGEN 7 MG/DL (7-18); BUN/CREATININE RATIO 15; CALCIUM 7.8 MG/DL (8.5-10.1); CARBON DIOXIDE 19 MMOL/L (21-32); CHLORIDE 109 MMOL/L (98-107); CREATININE SERUM 0.48 MG/DL (0.60-1.30); GFR ESTIMATED > 60; GLUCOSE 91 MG/DL (70-105); POTASSIUM 3.3 MMOL/L (3.6-5.0); SODIUM 138 MMOL/L (135-145)
[2017-07-17 06:00] VITALS: BP 128/64
[2017-07-17] MEDS: LACTOBACILLUS Acidoph/Bulgar (LACTINEX/FLORANEX) TAB PO SCH ×3 (06:11→17:00)
[2017-07-17] MEDS: NS IV 1000 ML 1,000 ML IV SCH (08:41)
[2017-07-17] MEDS: ATENOLOL 25 MG (TENORMIN) TAB PO SCH (08:41)
[2017-07-17] MEDS: ATENOLOL 50 MG (TENORMIN) TAB PO SCH (08:41)
[2017-07-17] MEDS: FAMOTIDINE 20MG/2ML IV (PEPCID) IVP SCH (08:50)
--- NOTE | 2017-07-17 11:29 | Cardiology Progress Note ---
Cardiology SOAP Progress Note Subjective: Mild abdominal pain Objective: I&O/Vital Signs Vital Sign - Last 12Hours 07/17/17 07/17/17 06:00 08:23 Temp 98.7 Pulse 86 Resp 22 B/P (MAP) 128/64 Pulse Ox 96 O2 Delivery Room Air Room Air Weight (Pounds): 189 Weight (Ounces): 0.0 Weight (Calculated Kilograms): 85.208900 Constitutional: No appears stated age, No AAO x 3, No apparent distress, No PERRL, No well-developed, No well-nourished, No other Respiratory: No accessory muscle use, No respiratory distress, No chest tender , No chest expansion is symmetric, No chest is bilaterally symmetric, No lungs clear to percussion, No lungs clear to auscultation, No crackles, No rhonchi, No rales, No stridor, No wheezing, No pleural rub, No other Cardiovascular: regular rate-rhythm, No irregularly irregular, No extra beats, No parasternal heave is noted, No JVD, No edema, No bradycardia, No tachycardia , No point of maximal impulse, No cardiac thrills are palpable, No S1 and S2, No gallop/S3, No gallop/S4, No diastolic murmur, No systolic murmur, No friction rub, No click, No other Gastrointestional: No tender, No soft, No round, No distended, No pulsatile mass, No organomegaly, No guarding, No rebound, No tenderness, No hernia, No mass, No audible bowel sounds, No abnormal bowel sounds, No abdominal bruits, No spleenomegaly, No other Extremities: No normal range of motion, No non-tender, No normal inspection, No pedal edema, No calf tenderness, No normal capillary refill, No pelvis stable , No calf tenderness, No inflammation, No pedal edema, No slow capillary refill , No swelling, No other, No abrasion, No clubbing, No cyanosis, No ecchymosis, No laceration, No no lower extremity edema bilateral, No significant edema, No tenderness, No wound Neurologic/Psychiatric: No upfitter II-XII nml as tested, No no motor/sensory deficits, No alert, No normal mood/affect, No oriented x 3, No abnormal cerebellar tests, No abnormal upfitter II-XII, No abnormal gait, No aphasia, No EOM palsy, No facial droop, No motor weakness, No sensory deficit, No depressed affect, No disoriented x 3, No other, No grossly intact, No power is 5/5 both on sides Skin: No normal color, No warm/dry, No cyanosis, No cool, No diaphoresis, No damp, No ecchymosis, No jaundice, No mottled, No pallor, No rash, No tattoos/ piercings, No ulcerations, No rash on exposed areas, No ulcerations on exposed areas, No other Results/Procedures: Labs Laboratory Tests 07/17/17 05:03: White Blood Count 7.3, Red Blood Count 4.12L, Hemoglobin 11.6L, Hematocrit 34L, Mean Corpuscular Volume 83, Mean Corpuscular Hemoglobin 28, Mean Corpuscular Hemoglobin Concent 34, Red Cell Distribution Width 12.6, Platelet Count 286, Mean Platelet Volume 10.0, Sodium Level 138, Potassium Level 3.3L, Chloride Level 109H, Carbon Dioxide Level 19L, Anion Gap 10, Blood Urea Nitrogen 7, Creatinine 0.48L, Estimat Glomerular Filtration Rate > 60, BUN/Creatinine Ratio 15, Glucose Level 91, Calcium Level 7.8L A/P: Assessment/Dx: Ruptured Appendicitis, Preop Cardiovascular evaluation, [place]'s syndrome with ASD and HOCM, pericardial effusion. Plan: ruptured appendicitis and possible abdominal surgery. Defer to general surgery. 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 I will arrange cardiology follow-up an old records will be requested. Echocardiogram showed hypertrophic cardiomyopathy. Pericardial effusion noted on echocardiogram however with no tamponade physiology. Repeat limited echocardiogram performed yesterday showed no increase in pericardial effusion and no chamber collapse. he may need evaluation for palpitation as an outpatient. I will continue to follow. Thank you for your consultation. Please call me if you have any questions. Esperanza Kelly MD, FACP, FACC, FSCAI, FHRS, CCDS Interventional Cardiology Cardiac Electrophysiology Vascular Medicine and Endovascular Interventions Anaya KELLY MD Jul 17, 2017 11:29 am
--- NOTE | 2017-07-17 13:13 | Progress Note (SOAP) ---
Subjective Date Seen by Provider: Jul 17, 2017 Time Seen by Provider: 12:48 Subjective/Events-last exam reports diarrhea. Leak around the drain site. Minimal abdominal pain, feeling hungry Review of Systems General: No Chills, No Night Sweats, No Fatigue, No Malaise HEENT: No Head Aches, No Eye Pain, No Ear Pain, No Dysphasia, No Sinus Congestion, No Post Nasal Drip, No Sore Throat Pulmonary: No Dyspnea, No Cough, No Pleuritic Chest Pain Cardiovascular: No: Chest Pain, Palpitations, Orthopnea, Paroxysmal Noc. Dyspnea, Edema, Lt Headedness Gastrointestinal: Abdominal Pain Genitourinary: No Dysuria, No Frequency, No Incontinence, No Hematuria, No Retention Musculoskeletal: leg pain Neurological: No: Weakness, Numbness, Incoordination, Change in speech, Confusion, Seizures, Other Objective Exam Vital Signs Date Time Temp Pulse Resp B/P (MAP) Pulse Ox O2 Delivery O2 Flow Rate FiO2 07/17/17 08:23 Room Air 07/17/17 06:00 98.7 86 22 128/64 96 Room Air 07/16/17 20:25 Room Air 07/16/17 18:34 98.6 72 20 136/66 98 Room Air I & O 07/18/17 07:00 Intake Total 100 ml Balance 100 ml Capillary Refill : General Appearance: No Apparent Distress Neck: Normal Inspection Cardiovascular: Regular Rate, Rhythm Gastrointestinal: soft Extremity: Pedal Edema, Swelling Neurologic/Psychiatric: Alert, Oriented x3 Other comments generalized edema. Minimal tenderness around the drain site. Results Lab Laboratory Tests 07/17/17 05:03: White Blood Count 7.3, Red Blood Count 4.12L, Hemoglobin 11.6L, Hematocrit 34L, Mean Corpuscular Volume 83, Mean Corpuscular Hemoglobin 28, Mean Corpuscular Hemoglobin Concent 34, Red Cell Distribution Width 12.6, Platelet Count 286, Mean Platelet Volume 10.0, Sodium Level 138, Potassium Level 3.3L, Chloride Level 109H, Carbon Dioxide Level 19L, Anion Gap 10, Blood Urea Nitrogen 7, Creatinine 0.48L, Estimat Glomerular Filtration Rate > 60, BUN/Creatinine Ratio 15, Glucose Level 91, Calcium Level 7.8L Assessment/Plan Assessment/Plan Assess & Plan/Chief Complaint delayed presentation of appendicitis with an abscess. Percutaneous drainage completed. Continue IV antibiotics and possibly consider a follow-up CT scan in 48 hours. appendix abscess. Hypokalemia, being replaced. Follow-up CT scan in am Final Diagnosis appendix abscess Clinical Quality Measures DVT/VTE Risk/Contraindication: Risk Factor Score Per Nursin ABBEY HARDEN MD Jul 17, 2017 1:13 pm
[2017-07-17] MEDS: POTASSIUM CL 10MEQ/50ML IVPB 50 ML IV SCH ×5 (13:36→19:59)
[2017-07-17 18:00] VITALS: BP 119/63
[2017-07-18] MEDS: MEROPENEM 500 MG in NS (IVPB) 100 ML IV SCH ×5 (00:11→23:01)
[2017-07-18 05:15] LABS: MEAN PLATELET VOLUME 10.1 FL (7.4-10.4); RED BLOOD COUNT 4.38 10^6/uL (4.35-5.85); RED CELL DISTRIBUTION WIDTH 12.6 % (10.0-14.5); WHITE BLOOD COUNT 6.3 10^3/uL (4.3-11.0)
[2017-07-18] MEDS: fentaNYL INJECTION 100 MCG/2 ML AMP IV PRN ×5 (05:31→21:53)
[2017-07-18 05:33] LABS: ANION GAP 9 MMOL/L (5-14); BLOOD UREA NITROGEN 6 MG/DL (7-18); BUN/CREATININE RATIO 11; CARBON DIOXIDE 23 MMOL/L (21-32); CHLORIDE 108 MMOL/L (98-107); CREATININE SERUM 0.53 MG/DL (0.60-1.30); GFR ESTIMATED > 60; GLUCOSE 96 MG/DL (70-105); POTASSIUM 3.5 MMOL/L (3.6-5.0); SODIUM 140 MMOL/L (135-145)
[2017-07-18] MEDS: LACTOBACILLUS Acidoph/Bulgar (LACTINEX/FLORANEX) TAB PO SCH ×3 (05:34→16:00)
[2017-07-18] MEDS: ONDANSETRON 4 MG/2 ML (SDV) Z0FRAN IV PRN ×2 (06:09→17:21)
[2017-07-18 06:10] VITALS: BP 123/72
[2017-07-18] MEDS ORDERED: NS 100 ML (IVPB) BAG IV ONE (07:30)
[2017-07-18] MEDS ORDERED: IOHEXOL 350 MG/ML 100 ML (OMNIPAQUE 350) VIAL IV ONE (07:30)
--- NOTE | 2017-07-18 08:28 | Diagnostic Imaging Report ---
PROCEDURE: CT abdomen and pelvis with contrast. TECHNIQUE: Multiple contiguous axial images were obtained through the abdomen and pelvis after administration of intravenous contrast. INDICATION: Appendiceal abscess followup. 100 mL of Omnipaque 350 and 450 cc of oral Gastrografin was administered. COMPARISON: 07/12/2017. FINDINGS: There are very small pleural effusions and minimal basilar atelectasis. The spleen is mildly enlarged at 14.2 x 4.9 x 15.5 CM in size. The liver, the gallbladder, the pancreas, and adrenal glands appear unremarkable. The abdominal aorta is relatively small in caliber but is patent. The kidneys have symmetric enhancement and contrast excretion with no hydronephrosis or focal lesion. There is interval resolution of the previously seen appendiceal abscess with no remaining fluid collection at the site of the drain placed. The remaining mildly thickened appendix with mild inflammation of the retrocecal region is seen. Minimal amount of free fluid in the right paracolic gutter is noted. Nonspecific slightly prominent amount of fluid is seen within the lumen of the cecum without significant dilatation. No small bowel obstruction. Minimal amount of free fluid in the pelvis is seen. The urinary bladder appears unremarkable. The osseous structures appear grossly unremarkable. IMPRESSION: Resolution of the previously seen retrocecal appendiceal abscess with remaining slightly thickened appendix with mild inflammatory change adjacent to the distal loop of the drain is seen. Dictated by: Dictated on workstation # [id number]
[2017-07-18] MEDS: ATENOLOL 50 MG (TENORMIN) TAB PO SCH (09:00)
[2017-07-18] MEDS: ATENOLOL 25 MG (TENORMIN) TAB PO SCH (09:00)
[2017-07-18] MEDS: FAMOTIDINE 20MG/2ML IV (PEPCID) IVP SCH (09:09)
[2017-07-18] MEDS: CATHETER FLUSH 10 ML SYR IV PRN ×3 (09:10→17:22)
--- NOTE | 2017-07-18 10:25 | Cardiology Progress Note ---
Cardiology SOAP Progress Note Subjective: Mild abdominal discomfort Objective: I&O/Vital Signs Vital Sign - Last 12Hours 07/18/17 06:10 Temp 98.2 Pulse 81 Resp 18 B/P (MAP) 123/72 Pulse Ox 97 O2 Delivery Room Air Weight (Pounds): 189 Weight (Ounces): 0.0 Weight (Calculated Kilograms): 85.804640 Constitutional: No appears stated age, No AAO x 3, No apparent distress, No PERRL, No well-developed, No well-nourished, No other Respiratory: No accessory muscle use, No respiratory distress, No chest tender , No chest expansion is symmetric, No chest is bilaterally symmetric, No lungs clear to percussion, No lungs clear to auscultation, No crackles, No rhonchi, No rales, No stridor, No wheezing, No pleural rub, No other Cardiovascular: regular rate-rhythm, No irregularly irregular, No extra beats, No parasternal heave is noted, No JVD, No edema, No bradycardia, No tachycardia , No point of maximal impulse, No cardiac thrills are palpable, No S1 and S2, No gallop/S3, No gallop/S4, No diastolic murmur, No systolic murmur, No friction rub, No click, No other Gastrointestional: No tender, No soft, No round, No distended, No pulsatile mass, No organomegaly, No guarding, No rebound, No tenderness, No hernia, No mass, No audible bowel sounds, No abnormal bowel sounds, No abdominal bruits, No spleenomegaly, No other Extremities: No normal range of motion, No non-tender, No normal inspection, No pedal edema, No calf tenderness, No normal capillary refill, No pelvis stable , No calf tenderness, No inflammation, No pedal edema, No slow capillary refill , No swelling, No other, No abrasion, No clubbing, No cyanosis, No ecchymosis, No laceration, No no lower extremity edema bilateral, No significant edema, No tenderness, No wound Neurologic/Psychiatric: No bark skinner II-XII nml as tested, No no motor/sensory deficits, No alert, No normal mood/affect, No oriented x 3, No abnormal cerebellar tests, No abnormal bark skinner II-XII, No abnormal gait, No aphasia, No EOM palsy, No facial droop, No motor weakness, No sensory deficit, No depressed affect, No disoriented x 3, No other, No grossly intact, No power is 5/5 both on sides Skin: No normal color, No warm/dry, No cyanosis, No cool, No diaphoresis, No damp, No ecchymosis, No jaundice, No mottled, No pallor, No rash, No tattoos/ piercings, No ulcerations, No rash on exposed areas, No ulcerations on exposed areas, No other Results/Procedures: Labs Laboratory Tests 07/18/17 05:05: White Blood Count 6.3, Red Blood Count 4.38, Hemoglobin 12.4L, Hematocrit 36L, Mean Corpuscular Volume 83, Mean Corpuscular Hemoglobin 28, Mean Corpuscular Hemoglobin Concent 34, Red Cell Distribution Width 12.6, Platelet Count 279, Mean Platelet Volume 10.1, Sodium Level 140, Potassium Level 3.5L, Chloride Level 108H, Carbon Dioxide Level 23, Anion Gap 9, Blood Urea Nitrogen 6L, Creatinine 0.53L, Estimat Glomerular Filtration Rate > 60, BUN/Creatinine Ratio 11, Glucose Level 96, Calcium Level 8.0L A/P: Assessment/Dx: Ruptured Appendicitis, Preop Cardiovascular evaluation, Velasquez's syndrome with ASD and HOCM, pericardial effusion. Plan: ruptured appendicitis and possible abdominal surgery. Defer to general surgery. The patient has history of [place]'s syndrome with ASD and hypertrophic cardiomyopathy. I will arrange cardiology follow-up an old records will be requested. Echocardiogram showed hypertrophic cardiomyopathy. Pericardial effusion noted on echocardiogram however with no tamponade physiology. Repeat limited echocardiogram performed yesterday showed no increase in pericardial effusion and no chamber collapse. he may need evaluation for palpitation as an outpatient. I will continue to follow. Thank you for your consultation. Please call me if you have any questions. Esperanza Kelly MD, FACP, FACC, FSCAI, FHRS, CCDS Interventional Cardiology Cardiac Electrophysiology Vascular Medicine and Endovascular Interventions Anaya KELLY MD Jul 18, 2017 10:25
--- NOTE | 2017-07-18 11:23 | Discharge Summary ---
Diagnosis/Chief Complaint Date of Admission Jul 15, 2017 at 12:11 pm Date of Discharge Discharge Summary-Simple/Stand Discharge Physical Examination Allergies: Coded Allergies: codeine (Verified Allergy, Severe, RAISES HEART RATE, 06/18/14) Vitals & I&Os Vital Sign - Last 12Hours Date Time Temp Pulse Resp B/P (MAP) Pulse Ox O2 Delivery O2 Flow Rate FiO2 07/18/17 06:10 98.2 81 18 123/72 97 Room Air Hospital Course See final discharge diagnosis. Discharge Instructions to patient/family Please see electronic discharge instructions given to patient. Discharge Medications Reviewed and agree with Discharge Medication list on patient's Discharge Instruction sheet Clinical Quality Measures DVT/VTE Risk/Contraindication: Risk Factor Score Per Nursin EDIE CORONA MD Jul 18, 2017 11:23 am
[2017-07-18 18:00] VITALS: BP 109/55
--- NOTE | 2017-07-18 20:45 | Progress Note ---
Subjective Date Seen by Provider: Jul 18, 2017 Time Seen by Provider: 11:42 Subjective/Events-last exam Patient with some slight abdominal pain around the drain otherwise his abdominal pain is very minimal. He states he's feeling significantly better. He is nothing by mouth right now but was tolerating diet. He had a CT scan performed which demonstrated drainage of the abscess. His white count has returned to normal. Patient is having some liquid stools. He denies any nausea vomiting fever sweats chills shortness of breath or chest pain at this time. Objective Exam Vital Signs Date Time Temp Pulse Resp B/P (MAP) Pulse Ox O2 Delivery O2 Flow Rate FiO2 07/18/17 18:00 97.5 85 22 109/55 95 Room Air 07/18/17 06:10 98.2 81 18 123/72 97 Room Air I & O 07/19/17 07:00 Intake Total 1000 ml Output Total 1700 ml Balance -700 ml Capillary Refill : General Appearance: No Apparent Distress HEENT: PERRL/EOMI Neck: Normal Inspection Respiratory: No Accessory Muscle Use, No Respiratory Distress Cardiovascular: Regular Rate, Rhythm Gastrointestinal: soft (no significant tenderness on palpation. There is a small air leak in the drain at the connector site. No palpable masses, no guarding or rebounding) Extremity: Pedal Edema, Swelling Neurologic/Psychiatric: Alert, Oriented x3 Skin: Warm/Dry Results Lab Laboratory Tests 07/18/17 05:05: White Blood Count 6.3, Red Blood Count 4.38, Hemoglobin 12.4L, Hematocrit 36L, Mean Corpuscular Volume 83, Mean Corpuscular Hemoglobin 28, Mean Corpuscular Hemoglobin Concent 34, Red Cell Distribution Width 12.6, Platelet Count 279, Mean Platelet Volume 10.1, Sodium Level 140, Potassium Level 3.5L, Chloride Level 108H, Carbon Dioxide Level 23, Anion Gap 9, Blood Urea Nitrogen 6L, Creatinine 0.53L, Estimat Glomerular Filtration Rate > 60, BUN/Creatinine Ratio 11, Glucose Level 96, Calcium Level 8.0L Assessment/Plan Assessment/Plan Assessment/Plan Perforated appendicitis with abscess. Patient had an IR drain placement. The follow-up CT scan today demonstrating drainage of the abscess. There is a small leak in the drain which the nurse is going to get with interventional radiology to fix. We'll continue on IV antibiotics. Resume diet. Possibly home tomorrow Clinical Quality Measures DVT/VTE Risk/Contraindication: Risk Factor Score Per Nursin KATTY CLEVELAND DO Jul 18, 2017 20:45
[2017-07-19] MEDS: fentaNYL INJECTION 100 MCG/2 ML AMP IV PRN ×4 (00:33→16:05)
[2017-07-19] MEDS: LACTOBACILLUS Acidoph/Bulgar (LACTINEX/FLORANEX) TAB PO SCH ×3 (05:20→16:05)
[2017-07-19] MEDS: MEROPENEM 500 MG in NS (IVPB) 100 ML IV SCH ×3 (05:20→17:27)
[2017-07-19 05:44] VITALS: BP 118/56
[2017-07-19 06:35] LABS: MEAN PLATELET VOLUME 10.2 FL (7.4-10.4); RED BLOOD COUNT 4.15 10^6/uL (4.35-5.85); RED CELL DISTRIBUTION WIDTH 12.6 % (10.0-14.5); WHITE BLOOD COUNT 6.6 10^3/uL (4.3-11.0)
[2017-07-19 06:55] LABS: ANION GAP 11 MMOL/L (5-14); BLOOD UREA NITROGEN 7 MG/DL (7-18); BUN/CREATININE RATIO 14; CALCIUM 8.1 MG/DL (8.5-10.1); CARBON DIOXIDE 23 MMOL/L (21-32); CHLORIDE 108 MMOL/L (98-107); GFR ESTIMATED > 60; GLUCOSE 92 MG/DL (70-105); POTASSIUM 3.6 MMOL/L (3.6-5.0); SODIUM 142 MMOL/L (135-145)
[2017-07-19] MEDS: ATENOLOL 25 MG (TENORMIN) TAB PO SCH (08:36)
[2017-07-19] MEDS: ATENOLOL 50 MG (TENORMIN) TAB PO SCH (08:36)
[2017-07-19] MEDS: FAMOTIDINE 20MG/2ML IV (PEPCID) IVP SCH (08:36)
[2017-07-19] MEDS: IBUPROFEN 800 MG (MOTRIN) TAB PO PRN (11:21)
[2017-07-19] MEDS: NYSTATIN ORAL SUSP 5 ML UDC PO SCH ×2 (11:21→17:27)
--- NOTE | 2017-07-19 14:02 | Cardiology Progress Note ---
Cardiology SOAP Progress Note Subjective: No cardiac complaints Objective: I&O/Vital Signs Vital Sign - Last 12Hours 07/19/17 05:44 Temp 98.4 Pulse 73 Resp 19 B/P (MAP) 118/56 Pulse Ox 92 O2 Delivery Room Air Weight (Pounds): 189 Weight (Ounces): 0.0 Weight (Calculated Kilograms): 85.869928 Constitutional: No appears stated age, No AAO x 3, No apparent distress, No PERRL, No well-developed, No well-nourished, No other Respiratory: No accessory muscle use, No respiratory distress, No chest tender , No chest expansion is symmetric, No chest is bilaterally symmetric, No lungs clear to percussion, No lungs clear to auscultation, No crackles, No rhonchi, No rales, No stridor, No wheezing, No pleural rub, No other Cardiovascular: regular rate-rhythm, No irregularly irregular, No extra beats, No parasternal heave is noted, No JVD, No edema, No bradycardia, No tachycardia , No point of maximal impulse, No cardiac thrills are palpable, No S1 and S2, No gallop/S3, No gallop/S4, No diastolic murmur, No systolic murmur, No friction rub, No click, No other Gastrointestional: No tender, No soft, No round, No distended, No pulsatile mass, No organomegaly, No guarding, No rebound, No tenderness, No hernia, No mass, No audible bowel sounds, No abnormal bowel sounds, No abdominal bruits, No spleenomegaly, No other Extremities: No normal range of motion, No non-tender, No normal inspection, No pedal edema, No calf tenderness, No normal capillary refill, No pelvis stable , No calf tenderness, No inflammation, No pedal edema, No slow capillary refill , No swelling, No other, No abrasion, No clubbing, No cyanosis, No ecchymosis, No laceration, No no lower extremity edema bilateral, No significant edema, No tenderness, No wound Neurologic/Psychiatric: No hand washer II-XII nml as tested, No no motor/sensory deficits, No alert, No normal mood/affect, No oriented x 3, No abnormal cerebellar tests, No abnormal hand washer II-XII, No abnormal gait, No aphasia, No EOM palsy, No facial droop, No motor weakness, No sensory deficit, No depressed affect, No disoriented x 3, No other, No grossly intact, No power is 5/5 both on sides Skin: No normal color, No warm/dry, No cyanosis, No cool, No diaphoresis, No damp, No ecchymosis, No jaundice, No mottled, No pallor, No rash, No tattoos/ piercings, No ulcerations, No rash on exposed areas, No ulcerations on exposed areas, No other Results/Procedures: Labs Laboratory Tests 07/19/17 05:51: White Blood Count 6.6, Red Blood Count 4.15L, Hemoglobin 11.9L, Hematocrit 35L, Mean Corpuscular Volume 84, Mean Corpuscular Hemoglobin 29, Mean Corpuscular Hemoglobin Concent 34, Red Cell Distribution Width 12.6, Platelet Count 326, Mean Platelet Volume 10.2, Sodium Level 142, Potassium Level 3.6, Chloride Level 108H, Carbon Dioxide Level 23, Anion Gap 11, Blood Urea Nitrogen 7, Creatinine 0.50L, Estimat Glomerular Filtration Rate > 60, BUN/Creatinine Ratio 14, Glucose Level 92, Calcium Level 8.1L A/P: Assessment/Dx: Ruptured Appendicitis, Preop Cardiovascular evaluation, Velasquez's syndrome with ASD and HOCM, pericardial effusion. Plan: ruptured appendicitis and possible abdominal surgery. Defer to general surgery. The patient has history of [place]'s syndrome with ASD and hypertrophic cardiomyopathy. Echocardiogram showed hypertrophic cardiomyopathy. Pericardial effusion noted on echocardiogram however with no tamponade physiology. Repeat limited echocardiogram performed yesterday showed no increase in pericardial effusion and no chamber collapse. he may need evaluation for palpitation as an outpatient. Please schedule outpatient follow-up with Dr. Kelly in one to 2 weeks on discharge. Thank you for your consultation. Please call me if you have any questions. Esperanza Kelly MD, FACP, FACC, FSCAI, FHRS, CCDS Interventional Cardiology Cardiac Electrophysiology Vascular Medicine and Endovascular Interventions Anaya KELLY MD Jul 19, 2017 2:02 pm
[2017-07-19] MEDS ORDERED: NYST1000 PO (15:29)
[2017-07-19] MEDS ORDERED: LACT1CAP64 PO (15:29)
[2017-07-19] MEDS ORDERED: METR500T PO (15:29)
[2017-07-19] MEDS ORDERED: AMOX-358 PO (15:29)
--- NOTE | 2017-07-19 15:31 | Discharge Inst-Simple/Standard ---
Discharge Inst-Standard Discharge Medications New, Converted or Re-Newed RX: Transmitted to Pharmacy Patient Instructions/Follow Up Plan of Care/Instructions/FU: Dr. Kelly 1-[address] Riley [address] Marmolejo 2 weeks Activity as Tolerated: No Discharge Diet: Soft Diet Other Inst to Patient . Instructions: No lifting greater than 10 pounds. No strenuous activity. Use incentive spirometer at home as directed. No Smoking Symptoms to Report: Appetite Changes, Extremity Discoloration, Numbness/Tingling, Swelling Increased , Bleeding Excessive, Eyesight Changes, Pain Increased, Urine Color Change, Constipation(Persistent), Fever over 101 degree F, Pain/Pressure in chest, Urinating Difficulty, Cough Up/Vomit Blood, Heart Beat Irreg/Pounding, Pain/ Pressure in jaw, Vaginal Bleeding Increase, Cramps in feet or legs, Lightheadedness, Pain/Pressure in shoulder, Diarrhea(Persistent), Memory Changes Suddenly, Questions/Concerns, Weight gain consecutive days, Dizziness/ Fainting, Nausea/Vomiting, Shortness of Breath, Weight gain over 2 pounds If questions or concerns contact your physician Or seek help at emergency department. KATTY RILEY DO Jul 19, 2017 15:31
--- NOTE | 2017-07-19 15:38 | Progress Note ---
Subjective Date Seen by Provider: Jul 19, 2017 Time Seen by Provider: 10:00 Subjective/Events-last exam feeling better. tolerating diet. has some thrush in mouth. not having any significant abdominal pain. drain with no output except flush. afebrile. wbc remains normal. Objective Exam Vital Signs Date Time Temp Pulse Resp B/P (MAP) Pulse Ox O2 Delivery O2 Flow Rate FiO2 07/19/17 05:44 98.4 73 19 118/56 92 Room Air 07/18/17 18:00 97.5 85 22 109/55 95 Room Air I & O 07/20/17 07:00 Intake Total 480 ml Output Total 675 ml Balance -195 ml Capillary Refill : General Appearance: No Apparent Distress HEENT: PERRL/EOMI Neck: Normal Inspection Respiratory: No Accessory Muscle Use, No Respiratory Distress Cardiovascular: Regular Rate, Rhythm Gastrointestinal: soft (no significant tenderness on palpation. There is a small air leak in the drain at the connector site. No palpable masses, no guarding or rebounding) Extremity: Pedal Edema, Swelling Neurologic/Psychiatric: Alert, Oriented x3 Skin: Warm/Dry Results Lab Laboratory Tests 07/19/17 05:51: White Blood Count 6.6, Red Blood Count 4.15L, Hemoglobin 11.9L, Hematocrit 35L, Mean Corpuscular Volume 84, Mean Corpuscular Hemoglobin 29, Mean Corpuscular Hemoglobin Concent 34, Red Cell Distribution Width 12.6, Platelet Count 326, Mean Platelet Volume 10.2, Sodium Level 142, Potassium Level 3.6, Chloride Level 108H, Carbon Dioxide Level 23, Anion Gap 11, Blood Urea Nitrogen 7, Creatinine 0.50L, Estimat Glomerular Filtration Rate > 60, BUN/Creatinine Ratio 14, Glucose Level 92, Calcium Level 8.1L Assessment/Plan Assessment/Plan Assessment/Plan Perforated appendicitis with abscess. Patient had an IR drain placement. The follow-up CT scan demonstrated drainage of the abscess. Thrush placed on swish and swallow nystatin. Home on augmentin and flagyl probiotic remove drain follow up with pcp, dr. bernal and myselft 1-2 weeks. Clinical Quality Measures DVT/VTE Risk/Contraindication: Risk Factor Score Per Nursin KATTY CLEVELAND DO Jul 19, 2017 15:37
[2017-07-19 17:51] VITALS: BP 118/67
[2017-07-19 19:48] VITALS: BP 118/67
[2017-07-20] MEDS ORDERED: FAMOTIDINE 20 MG (PEPCID) TABLET PO SCH (09:00)
== END 2017-07-19 18:35 | disposition home or self-care (01) | DRG 372 ==
LOC: 4TH 12:11
PROVIDERS: ADMIT Surgery; ATTEND Surgery
DX: K35.3 Acute appendicitis with localized peritonitis (principal); Q87.1 Congenital malformation syndromes predominantly associated with short stature; I42.4 Endocardial fibroelastosis; Q21.1 Atrial septal defect; N39.0 Urinary tract infection, site not specified; I31.3 Pericardial effusion (noninflammatory); M54.9 Dorsalgia, unspecified; F99 Mental disorder, not otherwise specified; E87.6 Hypokalemia; B37.0 Candidal stomatitis
CPT/HCPCS: 36415; 74177; 80048; 85025; 85027; 93308

== ENCOUNTER 2017-09-01 05:44 | Outpatient (CLI) | payer MEDICARE, MEDICAID ==
[~2017-09-01] VITALS: Ht 170.2 cm; Wt 85.7 kg
[~2017-09-01 05:44] MED LIST changes: +AMOX-358 PO; +LACT1CAP64 PO; +METR500T PO; +NYST1000 PO
== END 2017-09-01 14:22 ==
LOC: PREOP 05:44
PROVIDERS: ATTEND Surgery
DX: Z01.818 Encounter for other preprocedural examination (principal); K35.2 Acute appendicitis with generalized peritonitis

== ENCOUNTER 2017-09-08 07:21 | Day surgery (SDC) | payer MEDICARE, MEDICAID ==
[~2017-09-08] VITALS: Ht 170.2 cm; Wt 85.7 kg
[2017-09-08] MEDS: LACTATED RINGERS 1,000 ML IV SCH ×2 (08:00→11:44)
[2017-09-08 08:06] VITALS: BP 126/71
[2017-09-08] MEDS ORDERED: ceFAZolin 2 GM/50 ML NS 50 ML IV ONE (08:15)
[2017-09-08] MEDS ORDERED: BUPIVACAINE 0.5% 30 ML (SENSORCAINE) VIAL ONE (08:46)
[2017-09-08] MEDS ORDERED: LIDOCAINE 1% INJ 20 ML (XYLOCAINE) VIAL ONE (08:47)
[2017-09-08] MEDS ORDERED: fentaNYL INJECTION 100 MCG/2 ML AMP ONE ×2 (09:46→11:36)
[2017-09-08] MEDS ORDERED: MIDAZOLAM 2 MG/2 ML (VERSED) VIAL ONE (09:47)
--- NOTE | 2017-09-08 10:31 | Progress Note-Pre Operative ---
Pre-Operative Progress Note H&P Reviewed The H&P was reviewed, patient examined and no changes noted. Date Seen by Provider: Sep 08, 2017 Time Seen by Provider: 10: Date H&P Reviewed: Sep 08, 2017 Time H&P Reviewed: 10:31 Pre-Operative Diagnosis: perforated appendicitis KATTY CLEVELAND DO Sep 08, 2017 10:31
[2017-09-08] MEDS ORDERED: SEVOFLURANE (ULTANE) 15 ML INHAL SOLN ONE ×3 (10:59)
[2017-09-08] MEDS ORDERED: ROCURONIUM 50 MG/5 ML (ZEMURON) VIAL IV ONE (10:59)
[2017-09-08] MEDS ORDERED: ONDANSETRON 4 MG/2 ML (SDV) Z0FRAN ONE (10:59)
[2017-09-08] MEDS ORDERED: LIDOCAINE PF 2% 5 ML (XYLOCAINE) VIAL ONE (10:59)
[2017-09-08] MEDS ORDERED: SUCCINYLCHOLINE INJ 100 MG/5 ML SYR ONE (10:59)
[2017-09-08] MEDS ORDERED: proPOfol 200 MG/20 ML (DIPRIVAN) VIAL IV ONE (10:59)
[2017-09-08] MEDS ORDERED: DEXAMETHASONE 10 MG/ML (DECADRON) 1 ML VIAL ONE (10:59)
[2017-09-08] MEDS ORDERED: GLYCOPYRROLATE 0.2 MG/ML (ROBINUL) 2 ML VIAL ONE (11:07)
[2017-09-08] MEDS ORDERED: NEOSTIGMINE (BLOXIVERZ ) 1 MG/1ML 10 ML VIAL ONE (11:07)
--- NOTE | 2017-09-08 11:36 | Progress Note-Post Operative ---
Post-Operative Progess Note Surgeon (s)/Human Services Case Manager (s) Surgeon KATTY CLEVELAND DO Human Services Case Manager: Dr. Claros Pre-Operative Diagnosis perforated appendicitis Post-Operative Diagnosis same Procedure & Operative Findings Date of Procedure 09/08/17 Procedure Performed/Findings laparoscopic appendectomy Anesthesia Type general Estimated Blood Loss Estimated blood loss (mL): min Specimens/Packing Specimens Removed appendix KATTY CLEVELAND DO Sep 08, 2017 11:36
[2017-09-08] MEDS ORDERED: ACHD5005 PO (11:37)
--- NOTE | 2017-09-08 11:38 | Discharge Inst-Simple/Standard ---
Discharge Inst-Standard Discharge Medications New, Converted or Re-Newed RX: RX on Chart Patient Instructions/Follow Up Plan of Care/Instructions/FU: 2 weeks Riley Activity as Tolerated: No Discharge Diet: Regular Diet Other Inst to Patient Follow up Appt: Make appointment for 2 week. Instructions: No lifting greater than 10 pounds. No strenuous activity. May shower in 24 hours, no tub bath or soaking. Use incentive spirometer at home as directed. No Smoking Skin/Wound Care: You have special glue over incision it will fall off on its own. Symptoms to Report: Appetite Changes, Extremity Discoloration, Numbness/Tingling, Swelling Increased , Bleeding Excessive, Eyesight Changes, Pain Increased, Urine Color Change, Constipation(Persistent), Fever over 101 degree F, Pain/Pressure in chest, Urinating Difficulty, Cough Up/Vomit Blood, Heart Beat Irreg/Pounding, Pain/ Pressure in jaw, Vaginal Bleeding Increase, Cramps in feet or legs, Lightheadedness, Pain/Pressure in shoulder, Diarrhea(Persistent), Memory Changes Suddenly, Questions/Concerns, Weight gain consecutive days, Dizziness/ Fainting, Nausea/Vomiting, Shortness of Breath, Weight gain over 2 pounds If questions or concerns contact your physician Or seek help at emergency department. KATTY RILEY DO Sep 08, 2017 11:38
[2017-09-08] MEDS ORDERED: ONDANSETRON 4 MG/2 ML (SDV) Z0FRAN IVP PRN (12:00)
[2017-09-08] MEDS: morphine INJ 10 MG/ML 1ML (SYR OR VIAL) IVP PRN ×2 (12:15→12:22)
[2017-09-08] MEDS ORDERED: HYDROmorphone (DILAUDID) 2 MG/ML VIAL ONE (12:39)
[2017-09-08] MEDS ORDERED: HYDROmorphone (DILAUDID) 2 MG/ML VIAL IVP PRN (12:45)
[2017-09-08 13:10] VITALS: BP 131/72
[2017-09-08 13:40] VITALS: BP 131/78
[2017-09-08 14:33] VITALS: BP 131/78
--- OUTSIDE RECORDS SUMMARY | 2017-09-08 20:08 | XMS REPORT ---
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 VITAL SIGNS Blood pressure systolic 142 mmHg 2017-01-11 Blood pressure diastolic 87 mmHg 2017-01-11 MEDICATIONS Medication Instructions Dosage Frequency Start Date End Date Duration Status Atenolol 25 MG Orally 3 times a day 1 tablet 8h 90 days Active Tylenol Active Amoxicillin 500 MG Orally Three times a day 1 capsule 8h 7 days Active RESULTS No Results PROCEDURES Procedure Date Ordered Result Body Site LTD ORAL EVALUATION - PROBLEM FOCUS January 11, 2017 INTRAORL-PERIAPICAL 1 FILM [id number] January 11, 2017 BITEWING - SINGLE FILM January 11, 2017 IMMUNIZATIONS No Known Immunizations MEDICAL (GENERAL) HISTORY Type Description Date Medical History Hyperlipidemia Medical History HTN Medical History congenital heart defect Medical History heatr murmur Medical History arthritis Medical History back trouble Medical History heart disease Surgical History Scope to look at heart 2013
--- OUTSIDE RECORDS SUMMARY | 2017-09-08 20:08 | XMS REPORT | Continuity of Care Document ---
Author Author [facility] Organization [facility] Address Unknown Phone Unavailable Allergies Active Description Code Type Severity Reaction Onset Reported/Identified Relationship to Patient Clinical Status Yes codeine Drug Allergy 11/25/2008 Yes codeine Drug Allergy N/A N/A 11/25/2008 Yes codeine [id number] Drug Allergy Severe RAISES HEART RA 09/01/2017 Medications There is no data. 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 07/30/2008 JAIRNO DDS, SHORTY M 270.7 HYPERGLYCEMIA 07/30/2008 JAIRON [...] BORJAS DO, PRANAV K 784.0 headache 05/28/2010 SUAD NICHOLSON, PRANAV K 784.0 headache 05/28/2010 SHIN HANEY, [...] SHORTY Julien 759.89 SEUN'S SYNDROME 07/13/2010 BORJAS DO PRANAV K 759.89 SEUN'S SYNDROME 07/13/2010 BORJAS DO PRANAV K 759.89 SEUN'S SYNDROME 07/13/2010 BORJAS DO, PRANAV K 759.89 SEUN'S SYNDROME 07/13/2010 BORJAS DO, PRANAV K 759.89 SEUN'S SYNDROME 07/13/2010 SHIN HAENY, DAPHNEY 759.89 SEUN'S SYNDROME 07/13/2010 BORJAS DO, PRANAV [...] 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 04/22/2011 PRANAV BORJAS DO K 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 04/22/2011 BORJAS DO, PRANAV K 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 04/22/2011 BORJAS DO, PRANAV K 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 04/22/2011 BORJAS DO, PRANVA K 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 04/22/2011 SHIN HANEY, ALI 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 04/22/2011 [...] ARTERY STENOSIS MULTI-VESSEL 05/20/2011 JAIRON DDS, SHORTY Julien 414.01 CORONARY ARTERY STENOSIS MULTI-VESSEL 08/11/2011 272.4 HYPERLIPIDEMIA 08/11/2011 V04.81 Vaccines Prophylactic Need Against Influenza 08/11/2011 272.4 HYPERLIPIDEMIA 08/11/2011 V04.81 Vaccines Prophylactic Need Against Influenza 08/11/2011 272.4 HYPERLIPIDEMIA 08/11/2011 V04.81 Vaccines Prophylactic Need Against Influenza 08/11/2011 HOMER DDS, AMANDA F 272.4 HYPERLIPIDEMIA 08/11/2011 HOMER CHARLAS, AMANDA F V04.81 Vaccines Prophylactic Need Against [...] V04.81 Vaccines Prophylactic Need Against Influenza 08/11/2011 SHIN HANEY, DAPHNEY 272.4 HYPERLIPIDEMIA 08/11/2011 SHIN HANEY, DAPHNEY V04.81 Vaccines Prophylactic Need Against Influenza 08/11/2011 [...] V06.1 TDAP DX 12/23/2011 JAIRON DDS, SHORTY M V58.69 MEDICATION HIGH RISK 12/23/2011 BORJAS DO, PRANAV K V06.1 TDAP DX 12/23/2011 BORAJS DO, PRANAV K V58.69 MEDICATION HIGH RISK [...] V06.1 TDAP DX 12/23/2011 JAIRON DDS, SHORTY M V58.69 MEDICATION HIGH RISK 07/10/2012 787.20 DYSPHAGIA UNSPECIFIED 07/10/2012 787.20 DYSPHAGIA UNSPECIFIED 07/10/2012 787.20 DYSPHAGIA UNSPECIFIED 07/10/2012 HOMER DDS, AMANDA F 787.20 DYSPHAGIA UNSPECIFIED 07/10/2012 HOMER DDS, AMANDA F 787.20 DYSPHAGIA UNSPECIFIED 07/10/2012 787.20 DYSPHAGIA UNSPECIFIED 07/10/2012 JAIRON DDS, SHORTY M 787.20 DYSPHAGIA UNSPECIFIED 07/10/2012 BORJAS DO, PRANAV K 787.20 DYSPHAGIA UNSPECIFIED 07/10/2012 BORJAS DO, PRANAV K 787.20 DYSPHAGIA UNSPECIFIED 07/10/2012 BORJAS DO, PRANAV K 787.20 DYSPHAGIA UNSPECIFIED 07/10/2012 BORJAS DO, PRANAV K 787.20 DYSPHAGIA UNSPECIFIED 07/10/2012 DAPHNEY MELISSA MD 787.20 DYSPHAGIA UNSPECIFIED 07/10/2012 BORJAS DO, PRANAV K 787.20 DYSPHAGIA UNSPECIFIED 07/10/2012 JAIRON LEUNG, SHORTY Julien 787.20 DYSPHAGIA UNSPECIFIED 07/16/2012 Ot 127.4 ENTEROBIASIS 07/16/2012 Ot 462 ACUTE PHARYNGITIS 07/21/2012 Ot 729.81 SWELLING OF LIMB 07/21/2012 Ot 782.3 EDEMA 08/03/2012 112.0 THRUSH (ORAL) 08/03/2012 112.0 THRUSH (ORAL) 08/03/2012 HOMER DDS, AMANDA F 112.0 THRUSH (ORAL) 08/03/2012 HOMER DUNHAMS, AMANDA F 112.0 THRUSH (ORAL) 08/03/2012 112.0 THRUSH (ORAL) 08/03/2012 JAIRON LEUNG, SHORTY Julien 112.0 THRUSH (ORAL) 08/03/2012 BORJAS DO, PRANAV K 112.0 THRUSH (ORAL) 08/03/2012 BORJAS DO, PRANAV K 112.0 THRUSH (ORAL) 08/03/2012 BORJAS DO, PRANAV K 112.0 THRUSH (ORAL) 08/03/2012 BORJAS DO, PRANAV K 112.0 THRUSH (ORAL) 08/03/2012 DAPHNEY MELISSA MD 112.0 THRUSH (ORAL) 08/03/2012 BORJAS DO, PRANAV K 112.0 THRUSH (ORAL) 08/03/2012 JAIRON LEUNG, SHORTY Julien 112.0 THRUSH (ORAL) 05/01/2014 BORJAS DO, PRANAV K 785.1 PALPITATIONS 05/01/2014 DAPHNEY MELISSA MD 785.1 PALPITATIONS 05/01/2014 BORJAS DO, PRANAV K 785.1 PALPITATIONS 05/01/2014 JAIRON LEUNG, SHORTY Julien 785.1 PALPITATIONS 06/12/2014 DAPHNEY MELISSA MD 745.4 VENTRICULAR SEPTAL DEFECT 06/12/2014 BORJAS DO PRANAV K 745.4 VENTRICULAR SEPTAL DEFECT 06/12/2014 JAIRON LEUNG, SHORTY Julien 745.4 VENTRICULAR SEPTAL DEFECT 06/18/2014 SHIN HANEY FACC, DAPHNEY FACP CCDS Ot 424.0 MITRAL VALVE DISORDER 06/18/2014 SHIN HANEY FACC, DAPHNEY FACP CCDS Ot 745.5 SECUNDUM ATRIAL SEPT DEF 06/18/2014 SHIN HANEY FACC, DAPHNEY FACP CCDS Ot 759.89 OTHER SPECIFIED ANOMALIES 06/18/2014 SHIN HANEY FACC, DAPHNEY FACP CCDS Ot 785.1 PALPITATIONS 06/18/2014 SHIN HANEY FACC, DAPHNEY FACP CCDS Ot V17.49 FAMILY HISTORY OF OTHER CARDIOVASCULAR D 06/18/2014 SHIN HANEY FACC, DAPHNEY FACP CCDS Ot V58.69 OTH MED,LT,CURRENT USE 07/03/2014 DAPHNEY MELISSA MD 427.0 SVT (SUPRAVENTRICULAR TACHYCARDIA) 07/03/2014 PRANAV BORJAS DO 427.0 SVT (SUPRAVENTRICULAR TACHYCARDIA) 07/03/2014 JAIRON SHORTY LEUNG 427.0 SVT (SUPRAVENTRICULAR TACHYCARDIA) 07/23/2014 PRANAV BORJAS DO 112.0 CANDIDIASIS OF MOUTH 07/23/2014 PRANAV BORJAS DO K 462 ACUTE PHARYNGITIS 07/23/2014 JAIRON DDSSHORTY M 112.0 CANDIDIASIS OF MOUTH 07/23/2014 JAIRON LEUNG, SHORTY M 462 ACUTE PHARYNGITIS 02/11/2015 Ot 746.89 02/11/2015 Ot 747.3 07/12/2017 TOMASZ DOZIER SCRIPT DEVELOPER Ot 272.4 HYPERLIPIDEMIA NEC/NOS 07/12/2017 TOMASZ DOZIER SCRIPT DEVELOPER Ot 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 07/12/2017 TOMASZ DOZIER SCRIPT DEVELOPER Ot 785.1 PALPITATIONS 07/13/2017 KATTY [place] DO Ot F99 MENTAL DISORDER, NOT OTHERWISE SPECIFIED 07/13/2017 KATTY C[place] DO Ot I42.4 ENDOCARDIAL FIBROELASTOSIS 07/13/2017 KATTY C[place] DO Ot K35.3 ACUTE APPENDICITIS WITH LOCALIZED PERITO 07/13/2017 KATTY C[place] DO Ot M54.9 DORSALGIA, UNSPECIFIED 07/13/2017 KATTY C[place] DO Ot N39.0 URINARY TRACT INFECTION, SITE NOT SPECIF 07/13/2017 KATTY C[place] DO Ot 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 07/13/2017 TOMASZ DOZIER SCRIPT DEVELOPER Ot 272.4 HYPERLIPIDEMIA NEC/NOS 07/13/2017 TOMASZ DOZIER SCRIPT DEVELOPER Ot 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 07/13/2017 TOMASZ DOZIER SCRIPT DEVELOPER Ot 785.1 PALPITATIONS 07/13/2017 [place] DO, KATTY D Ot F99 MENTAL DISORDER, NOT OTHERWISE SPECIFIED 07/13/2017 [place] DO, KATTY D Ot I42.4 ENDOCARDIAL FIBROELASTOSIS 07/13/2017 [place] DO, KATTY D Ot K35.3 ACUTE APPENDICITIS WITH LOCALIZED PERITO 07/13/2017 [place] DO, KATTY D Ot M54.9 DORSALGIA, UNSPECIFIED 07/13/2017 [place] DO, KATTY D Ot N39.0 URINARY TRACT INFECTION, SITE NOT SPECIF 07/13/2017 [place] DO, KATTY D Ot 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 07/14/2017 [place] DO, KATTY D Ot F99 MENTAL DISORDER, NOT OTHERWISE SPECIFIED 07/14/2017 [place] DO, KATTY D Ot I42.4 ENDOCARDIAL FIBROELASTOSIS 07/14/2017 [place] DO, KATTY D Ot K35.3 ACUTE APPENDICITIS WITH LOCALIZED PERITO 07/14/2017 [place] DO, KTATY D Ot M54.9 DORSALGIA, UNSPECIFIED 07/14/2017 [place] DO, KATTY D Ot N39.0 URINARY TRACT INFECTION, SITE NOT SPECIF 07/14/2017 [place] DO, KATTY D Ot 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 07/15/2017 [place] DO, KATTY D Ot F99 MENTAL DISORDER, NOT OTHERWISE SPECIFIED 07/15/2017 [place] DO, KATTY D Ot I31.3 PERICARDIAL EFFUSION (NONINFLAMMATORY) 07/15/2017 [place] DO, KATTY D Ot I42.4 ENDOCARDIAL FIBROELASTOSIS 07/15/2017 [place] DO, KATTY D Ot K35.3 ACUTE APPENDICITIS WITH LOCALIZED PERITO 07/15/2017 [place] DO, KATTY D Ot M54.9 DORSALGIA, UNSPECIFIED 07/15/2017 [place] DO, KATTY D Ot N39.0 URINARY TRACT INFECTION, SITE NOT SPECIF 07/15/2017 [place] DO, KATTY D Ot Q21.1 ATRIAL SEPTAL DEFECT 07/15/2017 [place] DO, KATTY D Ot 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 07/19/2017 [place] DO, KATTY D Ot F99 MENTAL DISORDER, NOT OTHERWISE SPECIFIED 07/19/2017 [place] DO KATTY D Ot I31.3 PERICARDIAL EFFUSION (NONINFLAMMATORY) 07/19/2017 [place] DO, KATTY D Ot I42.4 ENDOCARDIAL FIBROELASTOSIS 07/19/2017 [place] DO KATTY D Ot K35.3 ACUTE APPENDICITIS WITH LOCALIZED PERITO 07/19/2017 [place] DO KATTY D Ot M54.9 DORSALGIA, UNSPECIFIED 07/19/2017 [place] DO, KATTY D Ot N39.0 URINARY TRACT INFECTION, SITE NOT SPECIF 07/19/2017 MEGHA DOKATTY D Ot Q21.1 ATRIAL SEPTAL DEFECT 07/19/2017 KATTY C[place] DO D Ot 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 07/19/2017 MEGHA DOKATTY D Ot B37.0 CANDIDAL STOMATITIS 07/19/2017 KATTY CLEVELAND DO D Ot E87.6 HYPOKALEMIA 07/19/2017 [place] DO, KATTY D Ot F99 MENTAL DISORDER, NOT OTHERWISE SPECIFIED 07/19/2017 MEGHA DOGUANAKOTT D Ot I31.3 PERICARDIAL EFFUSION (NONINFLAMMATORY) 07/19/2017 KATTY CLEVELAND DO D Ot I42.4 ENDOCARDIAL FIBROELASTOSIS 07/19/2017 [place] DOGUANAKOTT D Ot K35.3 ACUTE APPENDICITIS WITH LOCALIZED PERITO 07/19/2017 KATTY CLEVELAND DO D Ot M54.9 DORSALGIA, UNSPECIFIED 07/19/2017 KATTY CLEVELAND DO D Ot N39.0 URINARY TRACT INFECTION, SITE NOT SPECIF 07/19/2017 KATTY CLEVELAND DO D Ot Q21.1 ATRIAL SEPTAL DEFECT 07/19/2017 KATTY CLEVELAND DO D Ot 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 09/02/2017 KATTY CLEVELAND DO D Ot K35.2 ACUTE APPENDICITIS WITH GENERALIZED IRVIN 09/02/2017 KATTY CLEVELAND DO D Ot Z01.818 ENCOUNTER FOR OTHER PREPROCEDURAL EXAMIN Procedures Code Description Performed By Performed On [place] 07/10/2012 [id number] ROUTINE VENIPUNCTURE 09/15/2012 43988 CMP 09/15/2012 60309 LIPID PANEL 09/15/2012 [id number] GFR CALC (RESULT ONLY) 09/15/2012 57116 CPK 09/16/2012 53577 ROUTINE VENIPUNCTURE 12/20/2012 22081 LIVER PANEL (LFT) 12/20/2012 43867 LIPID PANEL 12/20/2012 14880 ROUTINE VENIPUNCTURE 08/01/2013 [id number] GFR CALC (RESULT ONLY) 08/01/2013 50994 CMP 08/01/2013 64148 LIPID PANEL 08/01/2013 51674 ROUTINE VENIPUNCTURE 02/27/2014 [id number] GFR CALC (RESULT ONLY) 02/27/2014 75893 CMP 02/27/2014 77579 LIPID PANEL 02/27/2014 75502 CBC 02/27/2014 74255 TSH 02/27/2014 69517 ECHO 2D 05/01/2014 09754 OXIMETRY 05/01/2014 00007 HOLTER MONITOR (OUTPATIENT) 07/03/2014 13334 OXIMETRY 07/03/2014 14213 ROUTINE VENIPUNCTURE 07/23/2014 [id number] GFR CALC (RESULT ONLY) 07/23/2014 21853 CMP 07/23/2014 10390 LIPID PANEL 07/23/2014 16877 OXIMETRY 09/25/2014 [id number] DRAINAGE OF APPENDIX WITH DRAINAGE DEVIC 07/12/2017 Results Test Result Range Complete blood count (CBC) with automated white blood cell (WBC) differential - 07/12/17 11:10 Blood leukocytes automated count (number/volume) 12.0 10*3/uL 4.3-11.0 Blood erythrocytes automated count (number/volume) 4.68 10*6/uL 4.35-5.85 Venous blood hemoglobin measurement (mass/volume) 13.4 g/dL 13.3-17.7 Blood hematocrit (volume fraction) 38 % 40-54 Automated erythrocyte mean corpuscular volume 82 [foz_us] 80-99 Automated erythrocyte mean corpuscular hemoglobin (mass per erythrocyte) 29 pg 25-34 Automated erythrocyte mean corpuscular hemoglobin concentration measurement ( mass/volume) 35 g/dL 32-36 Automated erythrocyte distribution width ratio 12.4 % 10.0-14.5 Automated blood platelet count (count/volume) 272 10*3/uL 130-400 Automated blood platelet mean volume measurement 10.4 [foz_us] 7.4-10.4 Automated blood neutrophils/100 leukocytes 82 % 42-75 Automated blood lymphocytes/100 leukocytes 5 % 12-44 Blood monocytes/100 leukocytes 12 % 0-12 Automated blood eosinophils/100 leukocytes 0 % 0-10 Automated blood basophils/100 leukocytes 0 % 0-10 Blood neutrophils automated count (number/volume) 9.8 10*3 1.8-7.8 Blood lymphocytes automated count (number/volume) 0.6 10*3 1.0-4.0 Blood monocytes automated count (number/volume) 1.5 10*3 0.0-1.0 Automated eosinophil count 0.1 10*3/uL 0.0-0.3 Automated blood basophil count (count/volume) 0.0 10*3/uL 0.0-0.1 Comprehensive metabolic panel - 07/12/17 11:10 Serum or plasma sodium measurement (moles/volume) 137 mmol/L 135-145 Serum or plasma potassium measurement (moles/volume) 3.3 mmol/L 3.6-5.0 Serum or plasma chloride measurement (moles/volume) 104 mmol/L 98-107 Carbon dioxide 26 mmol/L 21-32 Serum or plasma anion gap determination (moles/volume) 7 mmol/L 5-14 Serum or plasma urea nitrogen measurement (mass/volume) 8 mg/dL 7-18 Serum or plasma creatinine measurement (mass/volume) 0.70 mg/dL 0.60-1.30 Serum or plasma urea nitrogen/creatinine mass ratio 11 NRG Serum or plasma creatinine measurement with calculation of estimated glomerular filtration rate > NRG Serum or plasma glucose measurement (mass/volume) 105 mg/dL 70-105 Serum or plasma calcium measurement (mass/volume) 8.8 mg/dL 8.5-10.1 Serum or plasma total bilirubin measurement (mass/volume) 0.8 mg/dL 0.1-1.0 Serum or plasma alkaline phosphatase measurement (enzymatic activity/volume) 125 U/L 40-136 Serum or plasma aspartate aminotransferase measurement (enzymatic activity/ volume) 15 U/L 5-34 Serum or plasma alanine aminotransferase measurement (enzymatic activity/volume ) 25 U/L 0-55 Serum or plasma protein measurement (mass/volume) 6.6 g/dL 6.4-8.2 Serum or plasma albumin measurement (mass/volume) 3.5 g/dL 3.2-4.5 Blood manual differential performed detection - 07/12/17 11:10 Blood monocytes/100 leukocytes 10 % NRG Manual blood segmented neutrophils/100 leukocytes 73 % NRG Blood band neutrophils/100 leukocytes 7 % NRG Manual blood lymphocytes/100 leukocytes 10 % NRG Manual eosinophils/100 leukocytes in nose 0 % NRG Manual blood basophils/100 leukocytes 0 % NRG Blood rouleaux detection by light microscopy SLIGHT NRG Complete urinalysis with reflex to culture - 07/12/17 11:10 Urine color determination CANDELARIA NRG Urine clarity determination CLEAR NRG Urine pH measurement by test strip 6 5-9 Specific gravity of urine by test strip 1.020 1.016- 1.022 Urine protein assay by test strip, semi-quantitative 2+ NEGATIVE Urine glucose detection by automated test strip NEGATIVE NEGATIVE Erythrocytes detection in urine sediment by light microscopy 1+ NEGATIVE Urine ketones detection by automated test strip 1+ NEGATIVE Urine nitrite detection by test strip NEGATIVE NEGATIVE Urine total bilirubin detection by test strip 2+ NEGATIVE Urine urobilinogen measurement by automated test strip (mass/volume) 12 mg/dL NORMAL Urine leukocyte esterase detection by dipstick 1+ NEGATIVE Automated urine sediment erythrocyte count by microscopy (number/high power field) RARE NRG Automated urine sediment leukocyte count by microscopy (number/high power field ) [HPF] NRG Bacteria detection in urine sediment by light microscopy TRACE NRG Squamous epithelial cells detection in urine sediment by light microscopy 0-2 NRG Crystals detection in urine sediment by light microscopy NONE NRG Casts detection in urine sediment by light microscopy NONE NRG Mucus detection in urine sediment by light microscopy LARGE NRG Complete urinalysis with reflex to culture YES NRG Renal epithelial cells detection in urine sediment by light microscopy NONE NRG Bacterial urine culture - 07/12/17 11:10 Bacterial urine culture NG NRG Bacteria identification in isolate by anaerobe culture - 07/12/17 14:03 QUANTITY OF GROWTH Abundant Growth NRG Bacteria identification in isolate by anaerobe culture [id number] NRG Gram stain microscopy - 07/12/17 14:03 Gram stain microscopy sizes, and small coryneform gram positive rods NRG Bacteria identification in wound by culture - 07/12/17 14:03 Bacteria identification in wound by culture [id number] NR FREE TEXT EXTERNAL SENSITIVITY REPORTED 07/13/17 16:20 NRG QUANTITY OF GROWTH Abundant Growth NRG Bacterial susceptibility panel - 07/12/17 14:03 Gentamicin susceptibility test by minimum inhibitory concentration < = NRG Trimethoprim/sulfamethoxazole susceptibility test by minimum inhibitoryconcentration S NRG Ampicillin susceptibility test by minimum inhibitory concentration > = NRG Tobramycin susceptibility test by minimum inhibitory concentration < = NRG Cefazolin susceptibility test by minimum inhibitory concentration < = NRG Ceftriaxone susceptibility test by minimum inhibitory concentration <= NRG Ampicillin/sulbactam susceptibility test by minimum inhibitory concentration 16 NRG Piperacillin/tazobactam susceptibility test by minimum inhibitory concentration <= NRG Ciprofloxacin susceptibility test by minimum inhibitory concentration <= NRG Meropenem susceptibility test by minimum inhibitory concentration < = NRG Aztreonam susceptibility test by minimum inhibitory concentration < = NRG Extended spectrum beta lactamase (ESBL) producing bacteria susceptibility test by minimum inhibitory concentration - NRG Complete blood count (CBC) with automated white blood cell (WBC) differential - 07/13/17 05:43 Blood leukocytes automated count (number/volume) 14.4 10*3/uL 4.3-11.0 Blood erythrocytes automated count (number/volume) 4.67 10*6/uL 4.35-5.85 Venous blood hemoglobin measurement (mass/volume) 13.3 g/dL 13.3-17.7 Blood hematocrit (volume fraction) 38 % 40-54 Automated erythrocyte mean corpuscular volume 82 [foz_us] 80-99 Automated erythrocyte mean corpuscular hemoglobin (mass per erythrocyte) 29 pg 25-34 Automated erythrocyte mean corpuscular hemoglobin concentration measurement ( mass/volume) 35 g/dL 32-36 Automated erythrocyte distribution width ratio 12.7 % 10.0-14.5 Automated blood platelet count (count/volume) 247 10*3/uL 130-400 Automated blood platelet mean volume measurement 10.3 [foz_us] 7.4-10.4 Automated blood neutrophils/100 leukocytes 84 % 42-75 Automated blood lymphocytes/100 leukocytes 5 % 12-44 Blood monocytes/100 leukocytes 11 % 0-12 Automated blood eosinophils/100 leukocytes 0 % 0-10 Automated blood basophils/100 leukocytes 0 % 0-10 Blood neutrophils automated count (number/volume) 12.1 10*3 1.8-7.8 Blood lymphocytes automated count (number/volume) 0.7 10*3 1.0-4.0 Blood monocytes automated count (number/volume) 1.5 10*3 0.0-1.0 Automated eosinophil count 0.0 10*3/uL 0.0-0.3 Automated blood basophil count (count/volume) 0.0 10*3/uL 0.0-0.1 Whole blood basic metabolic panel - 07/13/17 05:43 Serum or plasma sodium measurement (moles/volume) 138 mmol/L 135-145 Serum or plasma potassium measurement (moles/volume) 3.9 mmol/L 3.6-5.0 Serum or plasma chloride measurement (moles/volume) 109 mmol/L 98-107 Carbon dioxide 19 mmol/L 21-32 Serum or plasma anion gap determination (moles/volume) 10 mmol/L 5-14 Serum or plasma urea nitrogen measurement (mass/volume) 8 mg/dL 7-18 Serum or plasma creatinine measurement (mass/volume) 0.64 mg/dL 0.60-1.30 Serum or plasma urea nitrogen/creatinine mass ratio 13 NRG Serum or plasma creatinine measurement with calculation of estimated glomerular filtration rate > NRG Serum or plasma glucose measurement (mass/volume) 96 mg/dL 70-105 Serum or plasma calcium measurement (mass/volume) 8.3 mg/dL 8.5-10.1 Complete blood count (CBC) with automated white blood cell (WBC) differential - 07/14/17 05:55 Blood leukocytes automated count (number/volume) 17.8 10*3/uL 4.3-11.0 Blood erythrocytes automated count (number/volume) 4.28 10*6/uL 4.35-5.85 Venous blood hemoglobin measurement (mass/volume) 12.3 g/dL 13.3-17.7 Blood hematocrit (volume fraction) 36 % 40-54 Automated erythrocyte mean corpuscular volume 83 [foz_us] 80-99 Automated erythrocyte mean corpuscular hemoglobin (mass per erythrocyte) 29 pg 25-34 Automated erythrocyte mean corpuscular hemoglobin concentration measurement ( mass/volume) 35 g/dL 32-36 Automated erythrocyte distribution width ratio 12.6 % 10.0-14.5 Automated blood platelet count (count/volume) 240 10*3/uL 130-400 Automated blood platelet mean volume measurement 10.2 [foz_us] 7.4-10.4 Automated blood neutrophils/100 leukocytes 88 % 42-75 Automated blood lymphocytes/100 leukocytes 4 % 12-44 Blood monocytes/100 leukocytes 8 % 0-12 Automated blood eosinophils/100 leukocytes 1 % 0-10 Automated blood basophils/100 leukocytes 0 % 0-10 Blood neutrophils automated count (number/volume) 15.5 10*3 1.8-7.8 Blood lymphocytes automated count (number/volume) 0.7 10*3 1.0-4.0 Blood monocytes automated count (number/volume) 1.4 10*3 0.0-1.0 Automated eosinophil count 0.1 10*3/uL 0.0-0.3 Automated blood basophil count (count/volume) 0.0 10*3/uL 0.0-0.1 Comprehensive metabolic panel - 07/14/17 05:55 Serum or plasma sodium measurement (moles/volume) 139 mmol/L 135-145 Serum or plasma potassium measurement (moles/volume) 3.7 mmol/L 3.6-5.0 Serum or plasma chloride measurement (moles/volume) 111 mmol/L 98-107 Carbon dioxide 18 mmol/L 21-32 Serum or plasma anion gap determination (moles/volume) 10 mmol/L 5-14 Serum or plasma urea nitrogen measurement (mass/volume) 15 mg/dL 7-18 Serum or plasma creatinine measurement (mass/volume) 0.61 mg/dL 0.60-1.30 Serum or plasma urea nitrogen/creatinine mass ratio 25 NRG Serum or plasma creatinine measurement with calculation of estimated glomerular filtration rate > NRG Serum or plasma glucose measurement (mass/volume) 88 mg/dL 70-105 Serum or plasma calcium measurement (mass/volume) 8.3 mg/dL 8.5-10.1 Serum or plasma total bilirubin measurement (mass/volume) 1.1 mg/dL 0.1-1.0 Serum or plasma alkaline phosphatase measurement (enzymatic activity/volume) 98 U/L 40-136 Serum or plasma aspartate aminotransferase measurement (enzymatic activity/ volume) 12 U/L 5-34 Serum or plasma alanine aminotransferase measurement (enzymatic activity/volume ) 19 U/L 0-55 Serum or plasma protein measurement (mass/volume) 5.4 g/dL 6.4-8.2 Serum or plasma albumin measurement (mass/volume) 2.8 g/dL 3.2-4.5 Automated blood complete blood count (hemogram) panel - 07/15/17 08:25 Blood leukocytes automated count (number/volume) 11.4 10*3/uL 4.3-11.0 Blood erythrocytes automated count (number/volume) 4.20 10*6/uL 4.35-5.85 Venous blood hemoglobin measurement (mass/volume) 12.0 g/dL 13.3-17.7 Blood hematocrit (volume fraction) 35 % 40-54 Automated erythrocyte mean corpuscular volume 83 [foz_us] 80-99 Automated erythrocyte mean corpuscular hemoglobin (mass per erythrocyte) 29 pg 25-34 Automated erythrocyte mean corpuscular hemoglobin concentration measurement ( mass/volume) 35 g/dL 32-36 Automated erythrocyte distribution width ratio 12.7 % 10.0-14.5 Automated blood platelet count (count/volume) 263 10*3/uL 130-400 Automated blood platelet mean volume measurement 10.0 [foz_us] 7.4-10.4 Whole blood basic metabolic panel - 07/15/17 08:25 Serum or plasma sodium measurement (moles/volume) 138 mmol/L 135-145 Serum or plasma potassium measurement (moles/volume) 3.4 mmol/L 3.6-5.0 Serum or plasma chloride measurement (moles/volume) 109 mmol/L 98-107 Carbon dioxide 20 mmol/L 21-32 Serum or plasma anion gap determination (moles/volume) 9 mmol/L 5-14 Serum or plasma urea nitrogen measurement (mass/volume) 13 mg/dL 7-18 Serum or plasma creatinine measurement (mass/volume) 0.54 mg/dL 0.60-1.30 Serum or plasma urea nitrogen/creatinine mass ratio 24 NRG Serum or plasma creatinine measurement with calculation of estimated glomerular filtration rate > NRG Serum or plasma glucose measurement (mass/volume) 98 mg/dL 70-105 Serum or plasma calcium measurement (mass/volume) 7.8 mg/dL 8.5-10.1 Complete blood count (CBC) with automated white blood cell (WBC) differential - 07/16/17 05:43 Blood leukocytes automated count (number/volume) 7.5 10*3/uL 4.3-11.0 Blood erythrocytes automated count (number/volume) 4.17 10*6/uL 4.35-5.85 Venous blood hemoglobin measurement (mass/volume) 11.8 g/dL 13.3-17.7 Blood hematocrit (volume fraction) 35 % 40-54 Automated erythrocyte mean corpuscular volume 83 [foz_us] 80-99 Automated erythrocyte mean corpuscular hemoglobin (mass per erythrocyte) 28 pg 25-34 Automated erythrocyte mean corpuscular hemoglobin concentration measurement ( mass/volume) 34 g/dL 32-36 Automated erythrocyte distribution width ratio 12.7 % 10.0-14.5 Automated blood platelet count (count/volume) 262 10*3/uL 130-400 Automated blood platelet mean volume measurement 10.0 [foz_us] 7.4-10.4 Automated blood neutrophils/100 leukocytes 82 % 42-75 Automated blood lymphocytes/100 leukocytes 9 % 12-44 Blood monocytes/100 leukocytes 7 % 0-12 Automated blood eosinophils/100 leukocytes 2 % 0-10 Automated blood basophils/100 leukocytes 0 % 0-10 Blood neutrophils automated count (number/volume) 6.2 10*3 1.8-7.8 Blood lymphocytes automated count (number/volume) 0.7 10*3 1.0-4.0 Blood monocytes automated count (number/volume) 0.6 10*3 0.0-1.0 Automated eosinophil count 0.1 10*3/uL 0.0-0.3 Automated blood basophil count (count/volume) 0.0 10*3/uL 0.0-0.1 Whole blood basic metabolic panel - 07/16/17 05:43 Serum or plasma sodium measurement (moles/volume) 139 mmol/L 135-145 Serum or plasma potassium measurement (moles/volume) 3.3 mmol/L 3.6-5.0 Serum or plasma chloride measurement (moles/volume) 109 mmol/L 98-107 Carbon dioxide 19 mmol/L 21-32 Serum or plasma anion gap determination (moles/volume) 11 mmol/L 5-14 Serum or plasma urea nitrogen measurement (mass/volume) 12 mg/dL 7-18 Serum or plasma creatinine measurement (mass/volume) 0.54 mg/dL 0.60-1.30 Serum or plasma urea nitrogen/creatinine mass ratio 22 NRG Serum or plasma creatinine measurement with calculation of estimated glomerular filtration rate > NRG Serum or plasma glucose measurement (mass/volume) 87 mg/dL 70-105 Serum or plasma calcium measurement (mass/volume) 7.8 mg/dL 8.5-10.1 Automated blood complete blood count (hemogram) panel - 07/17/17 05:03 Blood leukocytes automated count (number/volume) 7.3 10*3/uL 4.3-11.0 Blood erythrocytes automated count (number/volume) 4.12 10*6/uL 4.35-5.85 Venous blood hemoglobin measurement (mass/volume) 11.6 g/dL 13.3-17.7 Blood hematocrit (volume fraction) 34 % 40-54 Automated erythrocyte mean corpuscular volume 83 [foz_us] 80-99 Automated erythrocyte mean corpuscular hemoglobin (mass per erythrocyte) 28 pg 25-34 Automated erythrocyte mean corpuscular hemoglobin concentration measurement ( mass/volume) 34 g/dL 32-36 Automated erythrocyte distribution width ratio 12.6 % 10.0-14.5 Automated blood platelet count (count/volume) 286 10*3/uL 130-400 Automated blood platelet mean volume measurement 10.0 [foz_us] 7.4-10.4 Whole blood basic metabolic panel - 07/17/17 05:03 Serum or plasma sodium measurement (moles/volume) 138 mmol/L 135-145 Serum or plasma potassium measurement (moles/volume) 3.3 mmol/L 3.6-5.0 Serum or plasma chloride measurement (moles/volume) 109 mmol/L 98-107 Carbon dioxide 19 mmol/L 21-32 Serum or plasma anion gap determination (moles/volume) 10 mmol/L 5-14 Serum or plasma urea nitrogen measurement (mass/volume) 7 mg/dL 7-18 Serum or plasma creatinine measurement (mass/volume) 0.48 mg/dL 0.60-1.30 Serum or plasma urea nitrogen/creatinine mass ratio 15 NRG Serum or plasma creatinine measurement with calculation of estimated glomerular filtration rate > NRG Serum or plasma glucose measurement (mass/volume) 91 mg/dL 70-105 Serum or plasma calcium measurement (mass/volume) 7.8 mg/dL 8.5-10.1 Automated blood complete blood count (hemogram) panel - 07/18/17 05:05 Blood leukocytes automated count (number/volume) 6.3 10*3/uL 4.3-11.0 Blood erythrocytes automated count (number/volume) 4.38 10*6/uL 4.35-5.85 Venous blood hemoglobin measurement (mass/volume) 12.4 g/dL 13.3-17.7 Blood hematocrit (volume fraction) 36 % 40-54 Automated erythrocyte mean corpuscular volume 83 [foz_us] 80-99 Automated erythrocyte mean corpuscular hemoglobin (mass per erythrocyte) 28 pg 25-34 Automated erythrocyte mean corpuscular hemoglobin concentration measurement ( mass/volume) 34 g/dL 32-36 Automated erythrocyte distribution width ratio 12.6 % 10.0-14.5 Automated blood platelet count (count/volume) 279 10*3/uL 130-400 Automated blood platelet mean volume measurement 10.1 [foz_us] 7.4-10.4 Whole blood basic metabolic panel - 07/18/17 05:05 Serum or plasma sodium measurement (moles/volume) 140 mmol/L 135-145 Serum or plasma potassium measurement (moles/volume) 3.5 mmol/L 3.6-5.0 Serum or plasma chloride measurement (moles/volume) 108 mmol/L 98-107 Carbon dioxide 23 mmol/L 21-32 Serum or plasma anion gap determination (moles/volume) 9 mmol/L 5-14 Serum or plasma urea nitrogen measurement (mass/volume) 6 mg/dL 7-18 Serum or plasma creatinine measurement (mass/volume) 0.53 mg/dL 0.60-1.30 Serum or plasma urea nitrogen/creatinine mass ratio 11 NRG Serum or plasma creatinine measurement with calculation of estimated glomerular filtration rate > NRG Serum or plasma glucose measurement (mass/volume) 96 mg/dL 70-105 Serum or plasma calcium measurement (mass/volume) 8.0 mg/dL 8.5-10.1 Automated blood complete blood count (hemogram) panel - 07/19/17 05:51 Blood leukocytes automated count (number/volume) 6.6 10*3/uL 4.3-11.0 Blood erythrocytes automated count (number/volume) 4.15 10*6/uL 4.35-5.85 Venous blood hemoglobin measurement (mass/volume) 11.9 g/dL 13.3-17.7 Blood hematocrit (volume fraction) 35 % 40-54 Automated erythrocyte mean corpuscular volume 84 [foz_us] 80-99 Automated erythrocyte mean corpuscular hemoglobin (mass per erythrocyte) 29 pg 25-34 Automated erythrocyte mean corpuscular hemoglobin concentration measurement ( mass/volume) 34 g/dL 32-36 Automated erythrocyte distribution width ratio 12.6 % 10.0-14.5 Automated blood platelet count (count/volume) 326 10*3/uL 130-400 Automated blood platelet mean volume measurement 10.2 [foz_us] 7.4-10.4 Whole blood basic metabolic panel - 07/19/17 05:51 Serum or plasma sodium measurement (moles/volume) 142 mmol/L 135-145 Serum or plasma potassium measurement (moles/volume) 3.6 mmol/L 3.6-5.0 Serum or plasma chloride measurement (moles/volume) 108 mmol/L 98-107 Carbon dioxide 23 mmol/L 21-32 Serum or plasma anion gap determination (moles/volume) 11 mmol/L 5-14 Serum or plasma urea nitrogen measurement (mass/volume) 7 mg/dL 7-18 Serum or plasma creatinine measurement (mass/volume) 0.50 mg/dL 0.60-1.30 Serum or plasma urea nitrogen/creatinine mass ratio 14 NRG Serum or plasma creatinine measurement with calculation of estimated glomerular filtration rate > NRG Serum or plasma glucose measurement (mass/volume) 92 mg/dL 70-105 Serum or plasma calcium measurement (mass/volume) 8.1 mg/dL 8.5-10.1 Encounters ACCT No. Visit Date/Time Discharge Status Pt. Type Provider Facility Loc./Unit Complaint [id number] 09/01/2017 05:44:00 09/01/2017 14:22:00 DIS Outpatient KATTY CLEVELAND DO [facility] PREOP PERFORATED APPENDICITIS [id number] 07/15/2017 12:11:00 07/19/2017 18:35:00 DIS Inpatient KATTY CLEVELAND DO [facility] 4TH SWB-APPENDICEAL ABSCESS [id number] 07/12/2017 12:57:00 07/15/2017 12:10:00 DIS Inpatient KATTY CLEVELAND DO [facility] 4TH ACUTE APPENDICITIS [id number] 06/18/2014 10:08:00 06/18/2014 17:30:00 DIS Outpatient SHIN HANEY FACC, DAPHNEY GARVEY CCDS [facility] SOB, [id number] 05/10/2014 13:04:00 05/10/2014 23:59:59 CLS Outpatient TOMASZ DOZIER [facility] CARD PALPITATIONS, CONGENITAL HEART DISEASE [id number] 09/08/2017 08:00:00 PEN Preadmit CLEVELANDKATTY SIM DO Velma [facility] SDC PERFORATED APPENDICITIS [id number] 07/21/2012 07:01:00 Document Registration [id number] 07/16/2012 12:40:00 Document Registration [id number] 04/23/2011 09:18:00 Document Registration [id number] 09/25/2014 08:25:00 09/25/2014 23:59:59 CLS Outpatient SHORTY DE LA O DDS [id number] 07/23/2014 10:12:00 07/23/2014 23:59:59 CLS Outpatient PRANAV BORJAS DO [id number] 07/03/2014 10:33:00 07/03/2014 23:59:59 CLS Outpatient DAPHNEY MELISSA MD [id number] 05/01/2014 08:44:00 05/01/2014 23:59:59 CLS Outpatient PRANAV BORJAS DO [id number] 02/27/2014 09:51:00 02/27/2014 23:59:59 CLS Outpatient PRANAV BORJAS DO [id number] 08/01/2013 09:26:00 08/01/2013 23:59:59 CLS Outpatient PRANAV BORJAS DO [id number] 08/01/2013 09:26:00 08/01/2013 23:59:59 CLS Outpatient PRANAV BORJAS DO [id number] 06/28/2013 08:54:00 06/28/2013 23:59:59 CLS Outpatient SHORTY DE LA O DDS [id number] 10/17/2012 11:41:00 10/17/2012 23:59:59 CLS Outpatient AMANDA CORONEL DDS [id number] 09/18/2012 07:51:00 09/18/2012 23:59:59 CLS Outpatient AMANDA CORONEL DDS [id number] 08/11/2012 09:29:00 08/11/2012 23:59:59 CLS Outpatient [id number] 08/03/2012 08:55:00 08/03/2012 23:59:59 CLS Outpatient [id number] 07/10/2012 16:02:00 07/10/2012 23:59:59 CLS Outpatient [id number] 12/20/2012 11:37:00 Document Registration
--- NOTE | 2017-09-10 01:00 | OPERATIVE REPORT ---
DATE OF SERVICE: 09/08/2017 PREOPERATIVE DIAGNOSIS: Perforated appendicitis. POSTOPERATIVE DIAGNOSIS: Perforated appendicitis. PROCEDURE: Laparoscopic appendectomy. SURGEON: Katty Riley D.O. EQUIPMENT OPERATING ENGINEER: Dr. Claros, assisted in retraction, dissection and closure. ANESTHESIA: General. ESTIMATED BLOOD LOSS: Minimal. COMPLICATIONS: None. INDICATIONS: The patient is a 37-year-old male, who had a perforated appendicitis with abscess. He had interventional radiology placed a drain and was placed on antibiotics. The patient has presented for delayed appendectomy. He and family understand the risks and benefits of procedure and wished to proceed with procedure. Consent was signed and on the chart. DESCRIPTION OF PROCEDURE: The patient was taken to the operating suite, was prepped and draped in sterile fashion. Surgical pause was performed. Keiko technique was used to enter the abdomen just above the umbilicus. Once the fascia was opened, the abdomen was entered and a 0 Vicryl was placed in a [id number]-rk-[id number] fashion. The balloon trocar was inserted in the abdomen and pneumoperitoneum was achieved. Under direct visualization of the laparoscope, a 5 mm trocar was placed in the suprapubic region and a 5 mm trocar was placed in the left lower quadrant. The appendix was located. This at the base of the appendix had normal appearance that was held retrocecal and was fixed to the right lateral peritoneum and the tip being severely adhered to the cecum. The base of the appendix was dissected around at the base of the appendix with a [place]. An Endo-ADELINA 2.5 stapler was fired across the base of the appendix. Blunt dissection was used to continue to mobilize the appendix. This was severely adhered. Therefore, a LigaSure was then used to start to dissect the appendix from the mesoappendix. The appendix was then able to be freed away from the lateral wall and from the cecum and the remainder of the mesoappendix was removed using the LigaSure as well. The appendix was then placed in an Endobag and removed through the 12 mm trocar site. The abdomen was then irrigated with copious amounts of irrigation and suctioned. The abdomen was desufflated and trocars were removed. The 12 mm fascial defect was then closed with the previously placed 0 Vicryl suture. The skin was then closed using Monocryl in a subcuticular fashion. The area was then washed and dried, and Dermabond was then placed over the incisions. The patient tolerated procedure well without any complications and taken to the recovery room in stable condition. Job ID: [id number] DocumentID: [id number] Dictated Date: 09/09/2017 09:27:28 Body Mechanic Apprentice Date: 09/09/2017 13:51:40 Dictated By: KATTY RILEY DO
== END 2017-09-08 14:33 | disposition home or self-care (01) ==
LOC: SDC 07:21
PROVIDERS: ATTEND Surgery
DX: K35.2 Acute appendicitis with generalized peritonitis (principal); I10 Essential (primary) hypertension; Q21.1 Atrial septal defect; Q87.1 Congenital malformation syndromes predominantly associated with short stature; Z79.899 Other long term (current) drug therapy
CPT/HCPCS: 87081

== ENCOUNTER → 2017-11-17 | Day surgery (SDC) | payer MEDICARE, MEDICAID ==
[2017-11-17] VITALS (12 sets, daily range): BP systolic 115–147; BP diastolic 72–96
[~2017-11-17] VITALS: Ht 168.9 cm; Wt 89.8 kg
[~2017-11-17] MED LIST changes: +ACHD5005 PO; +IBUP200C11 PO; +INFLUENZA TRIvalent 2017-2018 0.5 ML/45 MCG SYR IM ONE; +LIDOCAINE 2% VISCOUS 15 ML UDC ONE; +LIDOCAINE 2% VISCOUS 15 ML UDC PO ONE; +MIDAZOLAM 5 MG/5 ML (VERSED) VIAL IV PRN; +MIDAZOLAM 5 MG/5 ML (VERSED) VIAL ONE; +NS IV 1000 ML 1,000 ML IV SCH; +NS IV 1000 ML 1,000 ML ONE; +fentaNYL INJECTION 100 MCG/2 ML AMP INJ PRN; +fentaNYL INJECTION 100 MCG/2 ML AMP IVP ONE; +fentaNYL INJECTION 100 MCG/2 ML AMP ONE
== END | disposition home or self-care (01) ==
LOC: CATH 07:51
PROVIDERS: ATTEND Internal Medicine Interventional Cardiology
DX: Q21.1 Atrial septal defect (principal); I42.2 Other hypertrophic cardiomyopathy; I31.3 Pericardial effusion (noninflammatory); I44.4 Left anterior fascicular block; Q87.1 Congenital malformation syndromes predominantly associated with short stature; I10 Essential (primary) hypertension; Z68.31 Body mass index [BMI] 31.0-31.9, adult; Z79.899 Other long term (current) drug therapy
CPT/HCPCS: 87081; 93005; 93320; 93325

== ENCOUNTER 2018-04-10 08:30 | Outpatient (RCR) | payer MEDICARE, MEDICAID ==
[~2018-04-10 08:30] MED LIST changes: -INFLUENZA TRIvalent 2017-2018 0.5 ML/45 MCG SYR IM ONE; -LIDOCAINE 2% VISCOUS 15 ML UDC ONE; -LIDOCAINE 2% VISCOUS 15 ML UDC PO ONE; -MIDAZOLAM 5 MG/5 ML (VERSED) VIAL IV PRN; -MIDAZOLAM 5 MG/5 ML (VERSED) VIAL ONE; -NS IV 1000 ML 1,000 ML IV SCH; -NS IV 1000 ML 1,000 ML ONE; -fentaNYL INJECTION 100 MCG/2 ML AMP INJ PRN; -fentaNYL INJECTION 100 MCG/2 ML AMP IVP ONE; -fentaNYL INJECTION 100 MCG/2 ML AMP ONE
== END 2018-06-14 | disposition home or self-care (01) ==
LOC: CARD 08:30
PROVIDERS: ATTEND Internal Medicine Interventional Cardiology
DX: R00.2 Palpitations (principal); R06.02 Shortness of breath; I42.2 Other hypertrophic cardiomyopathy; Q21.1 Atrial septal defect; Q87.1 Congenital malformation syndromes predominantly associated with short stature
CPT/HCPCS: 93270